=== PATIENT | female | born 1970 | race Caucasian/White ===

== ENCOUNTER → 2019-04-05 06:57 | Outpatient (CLI) | payer OTHER, SELFPAY ==
--- NOTE | 2019-04-05 07:03 | BI_ITS ---
MAMMOGRAPHY - BILATERAL SCREENING REASON FOR EXAM: Female, 48 years old. Routine annual screening examination. PERTINENT HISTORY: Non-contributory. History of bilateral breast reduction surgery. TECHNIQUE: Digital bilateral breast saadia (3D mammographic acquisition) in the CC and MLO projections. 2-D mediolateral oblique (MLO) and craniocaudad (CC) views of both breasts were obtained. CAD: Full Field Digital Mammography with Computer Added Detection was performed. COMPARISON: Comparison is made with prior study dated October 20, 2017 and September 16, 2016. FINDINGS: Breast Composition: There are scattered areas of fibroglandular density. There are no dominant masses or suspicious calcifications. No other significant abnormalities are identified. There has been no significant change since the prior study. BI/SCREENING MAMM (CAD), BILAT IMPRESSION: Stable bilateral screening mammogram. Yearly follow-up mammogram recommended. (A) ASSESSMENT CATEGORY: BIRADS Category 1: Negative. A letter regarding these results will be sent to the patient by the facility within 30 days. Approximately 10% of breast cancers are not detected by mammography. A normal mammogram should not delay biopsy of a clinically suspicious abnormality. [id number] Electronically Signed: Oral Alas, at 9:03 EDT , Service support ,
== END ==
PROVIDERS: Family Provider Family Medicine; PCP Family Medicine; Referring Provider Obstetrics & Gynecology; Visit Provider Obstetrics & Gynecology
DX: Z12.31 Encounter for screening mammogram for malignant neoplasm of breast (principal)
CPT/HCPCS: 77063; 77067

== ENCOUNTER → 2020-09-22 17:30 | Outpatient (CLI) | payer OTHER, SELFPAY ==
--- NOTE | 2020-09-22 16:40 | BI_ITS ---
MAMMOGRAPHY - BILATERAL SCREENING REASON FOR EXAM: Female, 49 years old. Routine annual screening examination. PERTINENT HISTORY: Non-contributory. History of remote bilateral breast reduction surgery. TECHNIQUE: Digital bilateral breast tu (3D mammographic acquisition) in the CC and MLO projections. 2-D mediolateral oblique (MLO) and craniocaudad (CC) views of both breasts were obtained. CAD: Full Field Digital Mammography with Computer Added Detection was performed. COMPARISON: Comparison is made with prior study dated 04/05/2019 and 10/20/2017. FINDINGS: Breast Composition: There are scattered areas of fibroglandular density. There are no dominant masses or suspicious calcifications. Interstitial clip marker is once again seen in the anterior superior retroareolar region of the right breast. No other significant abnormalities are identified. There has been no significant change since the prior study. BI/SCREEN MAMM (CAD) W/TU BILAT IMPRESSION: Stable bilateral screening mammogram. Yearly follow-up mammogram recommended. (A) ASSESSMENT CATEGORY: BIRADS Category 2: Benign. A letter regarding these results will be sent to the patient by the facility within 30 days. Approximately 10% of breast cancers are not detected by mammography. A normal mammogram should not delay biopsy of a clinically suspicious abnormality. [id number] Electronically Signed: Oral Alas, at 8:26 EST , Service support ,
== END ==
PROVIDERS: PCP Family Medicine; Referring Provider Nurse Practitioner Family; Visit Provider Nurse Practitioner Family
DX: Z12.31 Encounter for screening mammogram for malignant neoplasm of breast (principal)
CPT/HCPCS: 77063; 77067

== ENCOUNTER 2022-01-21 11:51 | Outpatient (CLI) | payer OTHER, SELFPAY ==
--- NOTE | 2022-01-21 11:53 | BI_ITS ---
MAMMOGRAPHY - BILATERAL SCREENING REASON FOR EXAM: Female, 51 years old. Routine annual screening examination. PERTINENT HISTORY: Non-contributory. Prior bilateral breast reduction surgery. TECHNIQUE: Digital bilateral breast tu (3D mammographic acquisition) in the CC and MLO projections. 2-D mediolateral oblique (MLO) and craniocaudad (CC) views of both breasts were obtained. CAD: Full Field Digital Mammography with Computer Added Detection was performed. COMPARISON: Comparison is made with prior study dated 09/22/2020 and 04/05/2019. FINDINGS: Breast Composition: There are scattered areas of fibroglandular density. Mildly spiculated nodule measuring 2.5 mm is seen in the deep upper lateral aspect of the left breast. Correlation with ultrasound is recommended. Stable asymmetric breast tissue with more breast tissue is seen in the retroareolar region of the right breast as compared to right side. A tissue clip marker is once again seen in the retroareolar region of the right breast. No other significant abnormalities are identified. BI/SCRN MAMM (CAD)W/TU BILAT IMPRESSION: 21 5 mm nodule is seen in the upper lateral aspect of the left breast. Correlation with ultrasound is recommended. ASSESSMENT CATEGORY: BIRADS Category 0: Incomplete. Need additional imaging evaluation. A letter regarding these results will be sent to the patient by the facility within 30 days. Approximately 10% of breast cancers are not detected by mammography. A normal mammogram should not delay biopsy of a clinically suspicious abnormality. [id number] Electronically Signed: Oral Alas MD at 13:05 EST ,
== END 2022-01-21 23:59 | disposition home or self-care (01) ==
LOC: OPBI 11:52
PROVIDERS: PCP Family Medicine; Visit Provider Student in an Organized Health Care Education/Training Program
DX: Z12.31 Encounter for screening mammogram for malignant neoplasm of breast (principal)
CPT/HCPCS: 77063; 77067

== ENCOUNTER 2022-01-25 13:58 | Outpatient (CLI) | payer OTHER, SELFPAY ==
--- NOTE | 2022-01-25 14:01 | US_ITS ---
STUDY: ULTRASOUND BREAST - LEFT REASON FOR EXAM: Female, 51 years old. Abnormal screening mammogram. TECHNIQUE: Axial and longitudinal images of the LEFT breast were performed with a high resolution ultrasound transducer. # OF IMAGES: 47 COMPARISON: Comparison is made with prior mammogram dated 01/21/2022. FINDINGS: LEFT Breast: There is a 7 mm x 9 mm x 4 mm benign-appearing lymph node at the 3 o''clock position of the breast at 4 cm from the nipple. There is also evidence of a 5 mm x 4 mm x 2 mm well-defined hypoechoic solid nodule at the 4 o''clock position of the breast at 7 cm from nipple. Biopsy is recommended. US/Breast Limited Unilateral IMPRESSION: 5 mm x 4 mm x 2 mm well-defined hypoechoic solid nodule at the 4 o''clock position of the breast at 7 cm from nipple. Biopsy is recommended. ASSESSMENT CATEGORY: BIRADS Category 4: Suspicious - Biopsy Should Be Considered. A letter regarding these results will be sent to the patient by the facility within 30 days. Electronically Signed: Oral Alas MD at 15:27 EST ,
== END 2022-01-25 23:59 | disposition home or self-care (01) ==
LOC: OPUS 13:59
PROVIDERS: PCP Family Medicine; Visit Provider Student in an Organized Health Care Education/Training Program
DX: N63.20 Unspecified lump in the left breast, unspecified quadrant (principal)
CPT/HCPCS: 76642

== ENCOUNTER 2022-02-07 12:30 | Outpatient (CLI) | payer OTHER, SELFPAY ==
--- NOTE | 2022-02-07 12:35 | US_ITS ---
STUDY: ULTRASOUND BREAST - LEFT REASON FOR EXAM: Female, 51 years old. Ultrasound guided left breast biopsy. TECHNIQUE: Axial and longitudinal images of the LEFT breast were performed with a high resolution ultrasound transducer. # OF IMAGES: 14 COMPARISON: Comparison is made with prior ultrasound dated 01/25/2022. FINDINGS: LEFT Breast: Successful sonographic guided core biopsies of the 5 mm x 4 mm x 3 mm well-defined hypoechoic solid nodule at the 4 o''clock position of the breast at 7 cm from the nipple. US/US Breast Biopsy 1st Lesion IMPRESSION: Successful sonographic guided core biopsies of the nodular density at the 4 o''clock position of the breast at 7 cm from nipple. ASSESSMENT CATEGORY: BIRADS Category 2: Benign. A letter regarding these results will be sent to the patient by the facility within 30 days. Electronically Signed: Oral Alas MD at 15:12 EDT ,
--- NOTE | 2022-02-07 13:05 | BRBX_PTH ---
PATIENT: MELCHOR METZ LOC: [facility] U#:[id number] AGE/SX: 51/F ROOM: RE02/07/[address]: Dr. John Giles MD : 1970 BED: DIS: 02/07/2022 SPEC #: [id number] RECD: 02/07/22 13:33 STATUS: SANDY REBarbara #: [id number] FAINA: 02/07/22 13:[address]: John Giles DEPT: SURGICAL PATHOLOGY RECD BY: Jodee Blount ENTERED: 02/08/22 08:17 SP TYPE: BREAST BX OTHR DR: Dr. Dorothy Marquis, DO Tissues: Left breast, NOS Procedures: Surgery Specimen Level IV HEADER OPERATION: Left breast biopsy PRE-OP DIAGNOSIS: Left breast mass TISSUE SUBMITTED: Left breast ISCHEMIC TIME: 1 minute FIXATION TIME: 30.5 hours MICROSCOPIC DIAGNOSIS Left breast mass, core biopsy: Fibroadenoma. Focal duct ectasia. No evidence of malignancy. AM:shikha 02/09/2022 MICROSCOPIC DESCRIPTION Slides are reviewed. GROSS DESCRIPTION Received in fixative is one container labeled with the patient's name and designated left breast. The specimen consists of multiple elongated fragments of du-yellow fibroadipose tissue that in aggregate measure 2 x 1 x 0.1 cm. The entire specimen is submitted in one cassette. / SJ:shikha 02/08/2022 TC:5 CPT: 88140
--- NOTE | 2022-02-07 13:33 | PCM.OPRPT ---
Problems Associated Problem List Diagnoses (1) Abnormal mammogram of left breast: Report of Operation Date of Procedure: 02/07/22 Pre-Operative Diagnosis: Left breast lesion Post-Operative Diagnosis: Same Surgery/Procedure Performed:: Ultrasound-guided core needle biopsy of left breast lesion Description of Procedure: Left breast was examined with ultrasound and the lesion was identified in the lateral aspect of the breast. An area lateral this was prepped and then injected with local anesthetic. A small jose was made with the scalpel. The mammotome needle was placed through this incision and under ultrasound guidance adjacent to the mass and several biopsies were obtained. The needle was then removed. A clip was then placed into the mass under ultrasound guidance. Next a Steri-Strip and bandage were placed over the incision. Patient tolerated the procedure well.
== END 2022-02-07 23:59 | disposition home or self-care (01) ==
PROVIDERS: PCP Family Medicine; Visit Provider Surgery
DX: D24.2 Benign neoplasm of left breast (principal); N60.42 Mammary duct ectasia of left breast; R92.8 Other abnormal and inconclusive findings on diagnostic imaging of breast
CPT/HCPCS: 19083; 88305

== ENCOUNTER → 2022-03-18 | Outpatient (CLI) | payer OTHER, SELFPAY ==
[2022-03-28 13:17] LABS: HPV APTIMA, High Risk Negative (Negative)
== END | disposition home or self-care (01) ==
LOC: WOBLAB 11:30
PROVIDERS: PCP Family Medicine; Visit Provider Student in an Organized Health Care Education/Training Program
DX: Z12.4 Encounter for screening for malignant neoplasm of cervix (principal)
CPT/HCPCS: 87624; 88175; G0145

== ENCOUNTER → 2023-12-22 | Outpatient (CLI) | payer OTHER, SELFPAY ==
--- NOTE | 2023-12-22 07:54 | BI_ITS ---
MAMMOGRAPHY - BILATERAL SCREENING REASON FOR EXAM: Female, 53 years old. Routine annual screening examination. PERTINENT HISTORY: Non-contributory. History of prior bilateral breast reduction surgery. Prior left ultrasound-guided breast biopsy. TECHNIQUE: Digital bilateral breast tu (3D mammographic acquisition) in the CC and MLO projections. 2-D mediolateral oblique (MLO) and craniocaudad (CC) views of both breasts were obtained. CAD: Full Field Digital Mammography with Computer Added Detection was performed. COMPARISON: Comparison is made with prior study of January 21, 2022 and September 22, 2020. FINDINGS: Breast Composition: There are scattered areas of fibroglandular density. There are no dominant masses or suspicious calcifications. Stable asymmetry of breast tissue with more breast tissue is seen in the retroareolar region of the right breast as compared to the left side a tissue clip marker is once again seen in the retroareolar region of the right breast. A new tissue clip marker is also seen in the deep slightly upper lateral aspect of the left breast from recent ultrasound-guided breast biopsy. Stable benign-appearing bilateral axillary lymph nodes. No other significant abnormalities are identified. There has been no significant change since the prior study. BI/SCRN MAMM (CAD)W/TU BILAT IMPRESSION: Stable bilateral screening mammogram. Yearly follow-up mammogram recommended. (A) ASSESSMENT CATEGORY: BIRADS Category 2: Benign. A letter regarding these results will be sent to the patient by the facility within 30 days. Approximately 10% of breast cancers are not detected by mammography. A normal mammogram should not delay biopsy of a clinically suspicious abnormality. [id number] Electronically Signed: Oral Alas MD at 8:37 EST ,
--- OUTSIDE RECORDS SUMMARY | 2023-12-22 07:59 | XMS RPT_ITS | CCD ---
Author Name Unknown Address [address] [place] [address] Organization [facility] Care Team Providers Care Pharmacovigilance Safety Expert Name Role Phone FEDERICO CHAVEZ Unavailable Unavailable FEDERICO CHAVEZ Unavailable Unavailable FEDERICO CHAVEZ Unavailable Unavailable MAGOLINEMICHAEL Admitting Unavailable MAGOLINE, MICHAEL Burkett Attending Unavailable MICHAEL LEIJA Primary Care Unavailable MELISA COLLAZO DO Consulting Unavailable PROVIDER, UNKNOWN Consulting Unavailable FEDERICO VINCENT DO Primary Care Physician DEONNA WILL CALL CLERK - MARY CARMEN PIEDRA Primary Care Phys [facility] DEONNA AVILESN - DOROTHEA, MARY CARMEN Maria Attending U navailable DEONNA WILL CALL CLERK - CIGARETTE ROLLER, MARY CARMEN Maria Primary Care U navailable DEONNA WILL CALL CLERK - CIGARETTE ROLLER, MARY CARMEN Maria Attending U navailable DEONNA WILL CALL CLERK - CIGARETTE ROLLER, MARY CARMEN Maria Primary Care U navailable DEONNA WILL CALL CLERK - CIGARETTE ROLLER, MARY CARMEN Maria Primary Care U navailable DEONNA WILL CALL CLERK - CIGARETTE ROLLER, MARY CARMEN Maria Attending U navailable Medications Current Medications Medication Drug Class(es) Dates Sig (Normalized) Sig (Original) cholecalciferol 1.25 mg oral capsule (1 source) Vitamin D Start: 06-15-2023 End: 12-12-2023 cholecalciferol 1250 mcg (50,000 intl units) oral capsule Dose : 50,000 International_Unit = 1 cap(s), Oral, qmonth, # 4 cap(s), 1 Refill(s), Pharmacy: [facility]/pharmacy #[id number], Vitamin D deficiency, 162, cm, 06/15/23 6:59:00 EDT, Height, kg, 06/15/23 6:59:00 EDT, Dosing Weight Start Date: 06/15/23 Stop Date: 12/12/23 Status: Ordered magnesium oxide 250 mg oral tablet (2 sources) Start: 12-27-2019 take 1 mg by mouth once daily Magnesium 250 mg tablet mg = tab(s), Oral, qDay, 0 Refill(s) Start Date: 12/27/19 Status: Ordered meloxicam 15 mg oral tablet (2 sources) Nonsteroidal Anti-inflammatory Drug Start: 11-26-2021 End: 12-23-2022 meloxicam 15 mg oral tablet Dose : 15 mg = 1 tab(s), Oral, qDay, # 90 tab(s), 1 Refill(s), Pharmacy: [facility]/pharmacy #[id number], Arthritis of knee, 162.3, cm, 05/27/22 8:28:00 EDT, Height, kg, 05/27/22 8:23:00 EDT, Dosing Weight Start Date: 05/27/22 Stop Date: 12/23/22 Status: Ordered Misc Medication (1 source) Start: 06-15-2023 Misc Medication Compounded mounjaro, 0 Refill(s), 105.5 Start Date: 06/15/23 Status: Ordered pantoprazole 40 mg delayed release oral tablet (3 sources) Proton Pump Inhibitor Start: 06-15-2023 pantoprazole 40 mg oral enteric coated tablet Dose : 40 mg = 1 tab(s), Oral, qDay, # 90 tab(s), 1 Refill(s), Pharmacy: [facility]/pharmacy #[id number], GERD (gastroesophageal reflux disease), 162, cm, 06/15/23 6:59:00 EDT, Height, kg, 06/15/23 6:59:00 EDT, Dosing Weight Start Date: 06/15/23 Status: Ordered Problems Active Problems Problem Classification Problem Date Documented Da te Episodic/Chronic Cardiac dysrhythmias (5 sources) Palpitations; Translations: [Palpitations] Onset: 06-02-2017 10-01-2020 Episodic Past or Other Problems Problem Classification Problem Date Documented Da te Episodic/Chronic Fluid and electrolyte disorders (2 sources) Hyperkalemia; Translations: [Hyperkalemia] Onset: 06-15-2023 Episodic Other connective tissue disease (3 sources) Unspecified rotator cuff tear or rupture of right shoulder, not specified as traumatic; Translations: [Unspecified rotator cuff tear or rupture of right shoulder, not specified as traumatic] Onset: 01-27-2020 Episodic Results Test Name Value Interpretation Reference Range Facil ity Encounters Encounter Date Encounter Type Care Provider Facility Start: 12-08-2023 End: 12-09-2023 ambulatory MARY CARMEN YING WILL CALL CLERK - C[employer]ET[employer]ER Facility:B Start: 06-15-2023 End: 06-20-2023 ambulatory MARY CARMEN YING WILL CALL CLERK - C[employer]ARETTE [employer]LLER Facility:[facility] Start: 06-15-2023 End: 06-19-2023 Outreach Lab MARY CARMEN YING WILL CALL CLERK - CIGARETTE [facility]LL[facility] Start: 06-09-2023 End: 06-10-2023 ambulatory MARY CARMEN YING WILL CALL CLERK - CIGARETTE ROLLER Facility:[facility] Start: 09-26-2022 End: 09-26-2022 Patient encounter procedure MICHAEL LEIJA MD [facility] Start: 05-19-2022 End: 05-23-2022 Outreach Lab MARY CARMEN YING WILL CALL CLERK - CIGARETTE ROLLER [facility] Start: 01-27-2020 End: 05-15-2020 Patient encounter procedure MICHAEL LEIJA [facility] Start: 06-02-2017 Ambulatory FEDERICO CHAVEZ Facilit y:[facility] Procedures Date Procedure Procedure Detail Performing Clinician Start: 01-29-2021 Colonoscopy MARY CARMEN AVILA WILL CALL CLERK - C[employer]ARETTE ROLLER Arthroscopy of knee MARY CARMEN DEONNA WILL CALL CLERK - CIGARETTE ROLLER Immunizations Immunization Date Immunization Notes Care Provider Fa cility 02-05-2021 SARS-CoV-2 (COVID-19 ) Ad26 vaccine, recombinant MARY CARMEN YING WILL CALL CLERK - CIGARETTE ROLLER [facility] Payers Date Payer Category Payer Unknown [id number] 1970 Unknown [id number] 1970 Unknown [id number] 1970 Unknown [id number] [id number] 1970 Unknown [id number] [id number] Social History Date Type Detail Facility Start: 07-02-2019 Tobacco smoking status Never s moked tobacco (finding) [facility] Sex Assigned At Female [facility] Evaluation + Plan note Laboratory Note Date & Type Note Facility Evaluation + Plan note Future Appointments Appointment Date:05/27/2022 08:20:00 AM Scheduled Provider:MARY CARMEN YING APRN, CNP Location:[facility] Appointment Type:PC OV Follow Up Future Scheduled TestsComplete Blood Count 07/12/21 [facility] Evaluation + Plan note Laboratory Note Date & Type Note Facility Evaluation + Plan note Future Appointments Appointment Date:11/24/2022 08:30:00 AM Scheduled Provider: Location:[facility] Appointment Type:PC Nurse Lab Appointment Date:12/02/2022 08:20:00 AM Scheduled Provider:MARY CARMEN YING APRN, CNP Location:[facility] Appointment Type:PC OV Follow Up Future Scheduled [id number] Hemoglobin 11/27/22Vitamin D Level 11/27/22 [facility] Evaluation + Plan note Laboratory Note Date & Type Note Facility Evaluation + Plan note Future Appointments Appointment Date:12/15/2023 07:40:00 AM Scheduled Provider:MARY CARMEN YING APRN, CNP Location:[facility] Appointment Type:PC OV Follow Up Future Scheduled [id number] Hemoglobin 12/16/23Lipid Profile 12/16/23Vitamin D Level 12/16/23Complete Metabolic Panel 12/16/23 [facility] Hospital course Narrative Note Date & Type Note Facility Hospital course Narrative No data available for this section [facility] Hospital Discharge instructions Note Date & Type Note Facility Hospital Discharge instructions No data available for this section [facility] Progress note Note Date & Type Note Facility Progress note No data available for this section [facility] Summary Purpose Family History No Family History Records FoundNo Family History Records Found No data available for this section No Family History Records Found Advance Directives No Advanced Directives Records FoundNo Advanced Directives Records FoundNo Advanced Directives Records Found Additional Source Comments INFORMATION SOURCE (unrecogn ized section and content) DATE CREATED AUTHOR AUTHOR'S ORGANIZ ATION 06/10/2020 [facility] DATE CREATED AUTHOR AUTHOR'S ORGANIZ ATION 12/09/2023 [facility] [place] ([place] Care Team (unrecognized sect ion and content) Care Team Personnel Name: FEDERICO VINCENT DO Position: P4 Physician - Primary Care Med Service: Active Provider Member Role: Primary Care Physician Address: Address: [address] [place] [address] Care Team Related Persons Name: MARY CARMEN METZ Care Team Personnel Name: MARY CARMEN YING APRN - CIGARETTE ROLLER Position: P4 Advanced Practice Nurse Member Role: Primary Care Physician Address: Address: [address] [place] [address] Care Team Related Persons Name: MARY CARMEN METZ Patient Care team informatio n (unrecognized section and content) Care Team Personnel Name: MARY CARMEN YING APRN - CIGARETTE ROLLER Position: P4 Advanced It Auditor Member Role: Primary Care Physician Address: Address: [address] [place] [address] Care Team Related Persons Name: MARY CARMEN METZ FOR RECORDS PERTAINING TO PATIENTS WHO ARE OR HAVE BEEN ENROLLED IN A CHEMICAL DEPENDENCY/SUBSTANCEABUSE PROGRAM, SOME INFORMATION MAY BE OMITTED. This clinical summary was aggregated from multiple sources. Caution should be exercised in using it in the provision of clinical care. This summary normalizes information from multiple sources, and as a consequence, information in this document may materially change the coding, format and clinical context of patient data. In addition, data may be omitted in some cases. CLINICAL DECISIONS SHOULD BE BASED ON THE PRIMARY CLINICAL RECORDS. [facility] [employer] provides no warranty or guarantee of the accuracy or completeness of information in this document.
== END | disposition home or self-care (01) ==
LOC: OPBI 07:53
PROVIDERS: PCP Nurse Practitioner Family; Referring Provider Nurse Practitioner Family; Visit Provider Nurse Practitioner Family
DX: Z12.31 Encounter for screening mammogram for malignant neoplasm of breast (principal)
CPT/HCPCS: 77063; 77067

== ENCOUNTER → 2025-08-14 | Outpatient (CLI) | payer OTHER, SELFPAY ==
--- NOTE | 2025-08-14 07:24 | BI_ITS ---
EXAM: SCRN MAMM (CAD)W/TU BILAT DATE: 08/14/2025 CLINICAL HISTORY: F, Age 54 y/o , SCREENING TECHNIQUE: Procedure Code: BISMWCADBTOM Modality: MG Procedure: SCRN MAMM (CAD)W/TU BILAT COMPARISON: Prior exam(s) were compared FINDINGS: TISSUE DENSITY: The breasts are heterogeneously dense, which may obscure small masses. Bilateral Breast Mammographic Findings: No suspicious masses, calcifications or other abnormalities are identified. BI/SCRN MAMM (CAD)W/TU BILAT IMPRESSION: No mammographic evidence of malignancy in either breast. OVERALL FINAL ASSESSMENT BI-RADS 1: NEGATIVE. RECOMMENDATION: Routine annual follow-up in 1 Year Additional Recommendation none A letter with findings and recommendations will be mailed to the patient. Reading Location: [id number]
--- NOTE | 2025-08-14 07:24 | BI_ITS ---
EXAM: SCRN MAMM (CAD)W/TU BILAT DATE: 08/14/2025 CLINICAL HISTORY: F, Age 54 y/o , SCREENING TECHNIQUE: Procedure Code: BISMWCADBTOM Modality: MG Procedure: SCRN MAMM (CAD)W/TU BILAT COMPARISON: Prior exam(s) were compared FINDINGS: TISSUE DENSITY: The breasts are heterogeneously dense, which may obscure small masses. Bilateral Breast Mammographic Findings: No suspicious masses, calcifications or other abnormalities are identified. BI/SCRN MAMM (CAD)W/TU BILAT IMPRESSION: No mammographic evidence of malignancy in either breast. OVERALL FINAL ASSESSMENT BI-RADS 1: NEGATIVE. RECOMMENDATION: Routine annual follow-up in 1 Year Additional Recommendation none A letter with findings and recommendations will be mailed to the patient. Reading Location: [id number]
--- OUTSIDE RECORDS SUMMARY | 2025-08-14 07:43 | XMS RPT_ITS | CCD ---
Author Organization [facility] CliniSyne Care Team Providers Care Corn Detasseler Machine Operator Name Role Phone FEDERICO CHAVEZ Unavailable Unavailable FEDERICO CHAVEZ Unavailable Unavailable FEDERICO CHAVEZ Unavailable Unavailable MICHAEL LEIJA Admitting Unavailable MICHAEL LEIJA Attending Unavailable MICHAEL LEIJA Primary Care Unavailable MELISA COLLAZO DO Consulting Unavailable PROVIDER, UNKNOWN Consulting Unavailable Dr. Federico Vincent Primary Care Provider Dr. John Giles Attending Provider [phone] Dr. Raissa Guzman Referring Provider Dr. John Giles Other Provider FEDERICO VINCENT DO Primary Care Physician ESTEBAN AUTOMOBILE TECHNICIAN - GOLDY PIEDRA [facility] ESTEBAN AUTOMOBILE TECHNICIAN - MBA INTERN, GOLDY Maria Attending U navailable ESTEBAN AUTOMOBILE TECHNICIAN - MBA INTERN, GOLDY Maria Primary Care U navailable BEITLER AUTOMOBILE TECHNICIAN-CNM, JELANI Peter Attending Unav ailable ESTEBAN AUTOMOBILE TECHNICIAN - MBA INTERN, GOLDY Maria Primary Care U navailable ESTEBAN AUTOMOBILE TECHNICIAN - MBA INTERN, GOLDY Maria Attending U navailable ESTEBAN AUTOMOBILE TECHNICIAN - MBA INTERN, GOLDY Maria Primary Care U navailable ESTEBAN AUTOMOBILE TECHNICIAN - MBA INTERN, GOLDY Maria Attending U navailable ESTEBAN AUTOMOBILE TECHNICIAN - MBA INTERN, GOLDY Maria Primary Care U navailable ESTEBAN AUTOMOBILE TECHNICIAN - MBA INTERN, GOLDY Maria Attending U navailable ESTEBAN AUTOMOBILE TECHNICIAN - MBA INTERN, GOLDY Maria Primary Care U navailable ESTEBAN AUTOMOBILE TECHNICIAN - MBA INTERN, GOLDY Maria Attending U navailable ESTEBAN AUTOMOBILE TECHNICIAN - MBA INTERN, GOLDY Maria Primary Care U navailable ESTEBAN AUTOMOBILE TECHNICIAN - MBA INTERN, GOLDY Maria Attending U toyin Dang CNP, GOLDY Maria Primary Care U toyin Dang CNP, GOLDY Maria Primary Care U MD DAYRON Hou Attending [facility] Esteban EMERGENCY ROOM TECHNICIAN, Goldy Quiroga Referring Melita Orellana EMERGENCY ROOM TECHNICIAN, Goldy Quiroga Attending Melita Orellana EMERGENCY ROOM TECHNICIAN, Goldy Quiroga Primary Care Unav ailable Medications Current Medications Medication Drug Class(es) Dates Sig (Normalized) Sig (Original) cholecalciferol 1.25 mg oral capsule (1 source) Vitamin D Start: 06-15-2023 End: 12-12-2023 cholecalciferol 1250 mcg (50,000 intl units) oral capsule Dose : 50,000 International_Unit = 1 cap(s), Oral, qmonth, # 4 cap(s), 1 Refill(s), [id number], Vitamin D deficiency, 162, cm, 06/15/23 6:59:00 EDT, Height, kg, 06/15/23 6:59:00 EDT, Dosing Weight Start Date: 06/15/23 Stop Date: 12/12/23 Status: Ordered ciprofloxacin 250 mg oral tablet (1 source) Quinolone Antimicrobial Start: 05-19-2025 End: 05-24-2025 Cipro 250 mg oral tablet Dose : 250 mg = 1 tab(s), Oral, BID, X 5 day(s), # 10 tab(s), 0 Refill(s), 05/24/25 3:48:00 PM EDT, Pharmacy: [facility]/pharmacy #[id number], UTI symptoms, 160, cm, 05/19/25 14:58:00 EDT, Height, 69.2, kg, 05/19/25 14:58:00 EDT, Dosing Weight Start Date: 05/19/25 Stop Date: 05/24/25 Status: Ordered Quantity: 10.0 Unit: tab(s) Repeat number: 1 Indications: Unspecified symptoms and signs involving the genitourinary system; estradiol 0.1 mg/ml vaginal cream (1 source) Estrogen Start: 07-16-2024 estradiol 0.1 mg/g vaginal cream See Instructions, 2 gram(s) Vaginal twice weekly, # 128 gram(s), 3 Refill(s), [facility], 162, cm, 07/16/24 13:24:00 EDT, Height, kg, 07/16/24 13:24:00 EDT, Dosing Weight Start Date: 07/16/24 Status: Ordered Estradiol Patch 0.025 mg/24 hours weekly transdermal film, extended release (2 sources) Start: 05-15-2024 Estradiol Patch 0.025 mg/24 hours weekly transdermal film, extended release 1 patch(es), Topical, qWeek, # 4 patch(es), 0 Refill(s), Pharmacy: [facility]/pharmacy #[id number], 161.7, cm, 05/15/24 9:32:00 EDT, Height, kg, 05/15/24 9:32:00 EDT, Dosing Weight Start Date: 05/15/24 Status: Ordered estrogens, conjugated (fpc) 0.625 mg/ml vaginal cream (3 sources) Estrogen Start: 05-15-2024 Premarin 0.625 mg/g vaginal cream with applicator 0.5 gram(s), Vaginal, qPM, intravaginal every night x 2 weeks, then reduce to 2x per week x 2weeks, # 15 gram(s), 0 Refill(s), Pharmacy: [facility]/pharmacy #[id number], 161.7, cm, 05/15/24 9:32:00 EDT, Height, kg, 05/15/24 9:32:00 EDT, Dosing Weight Start Date: 05/15/24 Status: Ordered magnesium oxide 250 mg oral tablet (2 sources) Start: 12-27-2019 take 1 mg by mouth once daily Magnesium 250 mg tablet mg = tab(s), Oral, qDay, 0 Refill(s) Start Date: 12/27/19 Status: Ordered meloxicam 15 mg oral tablet (4 sources) Nonsteroidal Anti-inflammatory Drug Start: 02-01-2022 Meloxicam Active EACH PO February 01, 2022 2:27pm Start: 11-26-2021 End: 12-23-2022 meloxicam 15 mg oral tablet Dose : 15 mg = 1 tab(s), Oral, qDay, # 90 tab(s), 1 Refill(s), Pharmacy: [facility]/pharmacy #[id number], Arthritis of knee, 162.3, cm, 05/27/22 8:28:00 EDT, Height, kg, 05/27/22 8:23:00 EDT, Dosing Weight Start Date: 05/27/22 Stop Date: 12/23/22 Status: Ordered [facility] Medication (1 source) Start: 06-15-2023 [facility] Medicatio n Compounded arthur, 0 Refill(s), 105.5 Start Date: 06/15/23 Status: Ordered pantoprazole 40 mg delayed release oral tablet (10 sources) Proton Pump Inhibitor Start: 07-11-2025 pantoprazole 40 mg oral enteric coated tablet Dose : 40 mg = 1 tab(s), Oral, qDay, # 90 tab(s), 1 Refill(s), [facility]acy: [facility], GERD (gastroesophageal reflux disease), 160, cm, 07/11/25 14:00:00 EDT, Height, kg, 07/11/25 14:00:00 EDT, Dosing Weight Start Date: 07/11/25 Status: Ordered Medication Dispense Status: Completed Quantity: 90.0 Unit: tab(s) Total Allowed Fills: 2 Fills Dispensed: 0 Indications: Gastro-esophageal reflux disease without esophagitis; Start: 01-10-2025 pantoprazole 4 0 mg oral enteric coated tablet Dose : 40 mg = 1 tab(s), Oral, qDay, # 90 tab(s), 1 Refill(s), Pharmacy: [facility], GERD (gastroesophageal reflux disease), 162, cm, 01/10/25 7:42:00 EST, Height, kg, 01/10/25 7:42:00 EST, Dosing Weight Start Date: 01/10/25 Status: Ordered Quantity: 90.0 Unit: tab(s) Repeat number: 2 Indications: Gastro-esophageal reflux disease without esophagitis; Start: 07-12-2024 pantoprazole 4 0 mg oral enteric coated tablet Dose : 40 mg = 1 tab(s), Oral, qDay, # 90 tab(s), 1 Refill(s), Pharmacy: [facility]/pharmacy #[id number], GERD (gastroesophageal reflux disease), 162, cm, 07/12/24 7:38:00 EDT, Height, kg, 07/12/24 7:38:00 EDT, Dosing Weight Start Date: 07/12/24 Status: Ordered Start: 12-15-2023 pantoprazole 4 0 mg oral enteric coated tablet Dose : 40 mg = 1 tab(s), Oral, qDay, # 90 tab(s), 1 Refill(s), Pharmacy: [facility]/pharmacy #[id number], GERD (gastroesophageal reflux disease), 162, cm, 12/15/23 7:56:00 EST, Height, kg, 12/15/23 7:56:00 EST, Dosing Weight Start Date: 12/15/23 Status: Ordered Start: 06-15-2023 pantoprazole 4 0 mg oral enteric coated tablet Dose : 40 mg = 1 tab(s), Oral, qDay, # 90 tab(s), 1 Refill(s), Pharmacy: [facility]/pharmacy #[id number], GERD (gastroesophageal reflux disease), 162, cm, 06/15/23 6:59:00 EDT, Height, kg, 06/15/23 6:59:00 EDT, Dosing Weight Start Date: 06/15/23 Status: Ordered Start: 02-01-2022 Pantoprazole A ctive TAB PO February 01, 2022 2:27pm Start: 11-26-2021 End: 12-23-2022 pantoprazole 40 mg oral ente samuel coated tablet Dose : 40 mg = 1 tab(s), Oral, qDay, # 90 tab(s), 1 Refill(s), Pharmacy: [facility]/pharmacy #[id number], GERD (gastroesophageal reflux disease), 162.3, cm, 05/27/22 8:28:00 EDT, Height, kg, 05/27/22 8:23:00 EDT, Dosing Weight Start Date: 05/27/22 Stop Date: 12/23/22 Status: Ordered PEG-3350 with Electrolytes (Eqv-GoLYTELY) oral powder for reconstitution (2 sources) Start: 07-12-2024 PEG-3350 with Electrolytes (Eqv-GoLYTELY) oral powder for reconstitution Dose = 240 mL, Oral, q10min, # 1 EA, 0 Refill(s), Pharmacy: [facility]/pharmacy #[id number], 162, cm, 07/12/24 7:38:00 EDT, Height, kg, 07/12/24 7:38:00 EDT, Dosing Weight Start Date: 07/12/24 Status: Ordered Quantity: 1.0 Unit: EA Repeat number: 1 Start: 07-12-2024 PEG-3350 with Electrolytes (Eqv-GoLYTELY) oral powder for reconstitution Dose = 240 mL, Oral, q10min, # 1 EA, 0 Refill(s), [id number], 162, cm, 07/12/24 7:38:00 EDT, Height, kg, 07/12/24 7:38:00 EDT, Dosing Weight Start Date: 07/12/24 Status: Ordered phenazopyridine hydrochloride 100 mg oral tablet (1 source) Start: 05-19-2025 End: 05-26-2025 Pyridium 100 mg oral tablet Dose : 100 mg = 1 tab(s), Oral, TID, X 7 day(s), # 21 tab(s), 0 Refill(s), 05/26/25 3:49:00 PM EDT, [id number], UTI symptoms, 160, cm, 05/19/25 14:58:00 EDT, Height, kg, 05/19/25 14:58:00 EDT, Dosing Weight Start Date: 05/19/25 Stop Date: 05/26/25 Status: Ordered Quantity: 21.0 Unit: tab(s) Repeat number: 1 Indications: Unspecified symptoms and signs involving the genitourinary system; polyethylene glycol 3350 20470 mg powder for oral solution (3 sources) Osmotic Laxative Start: 01-10-2025 End: 01-07-2026 take 17 doses by mouth once daily Miralax Powder Packet Dose : 17 gram(s) =, Oral, qDay, dissolve in water or juice before taking, X 90 day(s), # 255 gram(s), 1 Refill(s), 01/07/26 2:34:00 PM EST, Pharmacy: [facility], Chronic constipation, 160, cm, 07/11/25 14:00:00 EDT, Height, kg, 07/11/25 14:00:00 EDT, Dosing Weight Start Date: 07/11/25 Stop Date: 01/07/26 Status: Ordered Medication Dispense Status: Completed Quantity: 255.0 Unit: g Total Allowed Fills: 2 Fills Dispensed: 0 Indications: Other constipation; progesterone 200 mg oral capsule (2 sources) Progesterone Start: 05-15-2024 take 1 capsule by mouth once daily Progesterone (micronized) 200 mg oral capsule Dose : 200 mg =, Oral, qDay, # 60 cap(s), 0 Refill(s), Pharmacy: [facility]/pharmacy #[id number], 161.7, cm, 05/15/24 9:32:00 EDT, Height, kg, 05/15/24 9:32:00 EDT, Dosing Weight Start Date: 05/15/24 Status: Ordered tirzepatide 15 mg/0.5 mL subcutaneous solution (2 sources) Start: 12-30-2024 tirzepatide 15 mg/0.5 mL subcutaneous solution mg =, Subcutaneous, 0 Refill(s) Start Date: 12/30/24 Status: Ordered Medication Dispense Status: Completed Total Allowed Fills: 1 Fills Dispensed: 0 Start: 12-30-2024 tirzepatide 15 mg/0.5 mL subcutaneous solution mg =, Subcutaneous, 0 Refill(s) Start Date: 12/30/24 Status: Ordered Repeat number: 1 Vitamin B Complex oral table t (1 source) Start: 11-26-2021 Vitamin B Comp britney oral tablet Oral, qDay, 0 Refill(s) Start Date: 11/26/21 Status: Ordered Completed/Discontinued Medications Medication Drug Class(es) Dates Sig (Normalized) Sig (Original) 0.75 ML semaglutide 3.2 MG/ML Auto-Injector [Wegovy] (3 sources) Start: 12-15-2023 End: 08-23-2024 inject 0.75 mL by subcutaneous injection every week Wegovy (2.4 mg dose) subcutaneous solution Dose : 2.4 mg = 0.75 mL, Subcutaneous, qWeek, in the abdomen, thigh, or upper arm, # 13.5 mL, 1 Refill(s), Pharmacy: [facility]acy #[id number], 162, cm, 12/15/23 7:56:00 EST, Height, kg, 12/15/23 7:56:00 EST, Dosing Weight Start Date: 12/15/23 Stop Date: 08/23/24 Status: Ordered linaclotide 0.145 mg oral capsule (1 source) Guanylate Cyclase-C Agonist Start: 07-12-2024 End: 09-10-2024 Linzess 145 mcg oral capsule Dose : 145 mcg = 1 cap(s), Oral, qDayAC, 30 minutes before breakfast. Do NOT crush/chew, # 30 cap(s), 1 Refill(s), Pharmacy: [facility]/pharmacy #[id number], Chronic constipation, 162, cm, 07/12/24 7:38:00 EDT, Height, kg, 07/12/24 7:38:00 EDT, Dosing Weight Start Date: 07/12/24 Stop Date: 09/10/24 Status: Ordered Problems Active Problems Problem Classification Problem Date Documented Date Episodic/Chronic Abdominal pain (2 sources) Unspecified abdominal pain; Translations: [Unspecified abdominal pain] Onset: 05-19-20 Episodic Cardiac dysrhythmias (12 sources) Palpitations; Translations: [Palpitations] Onset: 06-02-20 17 10-01-2020 Episodic Comment on above: (2019) EKG Results: SINUS RHYTHM Diabetes mellitus without complication (9 sources) Impaired fasting glycemia 05-27-2022 Episod ic Disorders of lipid metabolism (8 sources) Hypercholesterolemia 06-15-2023 Chronic Esophageal disorders (10 sources) Gastroesophageal reflux disease 10-23-2020 Chronic Comment on above: (2019) XR UPPER GI Procedure: The patient swallowed barium without difficulty. The esophagus is structurally normal. The esophageal mucosa appears normal. No esophageal dysmotility is realized. The stomach demonstrates normal distensibility. No mass or ulceration is identified. The duodenal bulb and sweep are unremarkable. Mild gastroesophageal reflux was demonstrated during this examination. No hiatal hernia is identified. Fluoroscopy time: 47 seconds Number of images: 12 Number of films: 4 Dose: 1232.3 cgycm2 IMPRESSION: Mild gastroesophageal reflux. (2019) XR UPPER GI Procedure: The patient swallowed barium without difficulty. The esophagus is structurally normal. The esophageal mucosa appears normal. No esophageal dysmotility is realized. The stomach demonstrates normal distensibility. No mass or ulceration is identified. The duodenal bulb and sweep are unremarkable. Mild gastroesophageal reflux was demonstrated during this examination. No hiatal hernia is identified. Fluoroscopy time: 47 seconds Number of images: 12 Number of films: 4 Dose: 1232.3 cgycm2 IMPRESSION: Mild gastroesophageal reflux. Heart valve disorders (18 sources) Mitral valve regurgitation; Translations: [Tricuspid valve regurgitation] 10-12-2020 Chronic Comment on above: (2019) Echo Summary: 1. Mild biatrial enlargement. Normal biventricular function. 2. Left ventricle: The cavity size is normal. Wall thickness is normal. Systolic function is normal. The estimated ejection fraction is 60-65%. Wall motion is normal; there are no regional wall motion abnormalities. Normal diastolic function. 3. Mitral valve: There is trivial regurgitation. 4. Left atrium: The atrium is mildly dilated. 5. Right ventricle: The RV systolic pressure by Doppler is 22 mm Hg. 6. Right atrium: The atrium is mildly dilated. The estimated right atrial pressure is 3 mm Hg. Impressions: Mild biatrial enlargement. Heart valve disorders (10 sources) Heart murmur 10-01-2020 Episodic Comment on above: (2019) Echo Summary: 1. Mild biatrial enlargement. Normal biventricular function. 2. Left ventricle: The cavity size is normal. Wall thickness is normal. Systolic function is normal. The estimated ejection fraction is 60-65%. Wall motion is normal; there are no regional wall motion abnormalities. Normal diastolic function. 3. Mitral valve: There is trivial regurgitation. 4. Left atrium: The atrium is mildly dilated. 5. Right ventricle: The RV systolic pressure by Doppler is 22 mm Hg. 6. Right atrium: The atrium is mildly dilated. The estimated right atrial pressure is 3 mm Hg. Echo Impressions: Mild biatrial enlargement. Normal biventricular function. . 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 Mild biatrial enlargement. Normal biventricular function. 2. Left ventricle: The cavity size is normal. Wall thickness is normal. Systolic function is normal. The estimated ejection fraction is 60-65%. Wall motion is normal; there are no regional wall motion abnormalities. Normal diastolic function. 3. Mitral valve: There is trivial regurgitation. 4. Left atrium: The atrium is mildly dilated. 5. Right ventricle: The RV systolic pressure by Doppler is 22 mm Hg. 6. Right atrium: The atrium is mildly dilated. The estimated right atrial pressure is 3 mm Hg. Impressions: Mild biatrial enlargement. Other gastrointestinal disorders (2 sources) Constipation; Translations: [Constipation, unspecified] 02-01-2022 Episodic Other gastrointestinal disorders (10 sources) Chronic constipation 09-21-2020 Episodic Other non-traumatic joint disorders (10 sources) Arthritis of knee 05-21-2021 Chronic Other nutritional; endocrine; and metabolic disorders (6 sources) Body mass index 40+ - severely obese 06-15-2023 Chronic Other nutritional; endocrine; and metabolic disorders (6 sources) Morbid obesity 06-15-2023 Chronic Other nutritional; endocrine; and metabolic disorders (2 sources) Overweight in adulthood with body mass index of 25 or more but less than 30 01-10-2025 Episodic Other screening for suspected conditions (not mental disorders or infectious disease) (9 sources) Mammography abnormal; Translations: [Other abnormal and inconclusive findings on diagnostic imaging of breast] Onset: 05-15-20 Episodic Residual codes; unclassified (8 sources) Did not attend 06-01-2023 Episodic Comment on above: 06/01/2023 Sprains and strains (3 sources) Strain of neck muscle 11-26-2021 Episodic Unclassified (20 sources) Patient encounter status 09-21-2020 Unclassified (8 sources) Non-smoker 06-15-2023 Past or Other Problems Problem Classification Problem Date Documented Da te Episodic/Chronic Other connective tissue disease (3 sources) Unspecified rotator cuff tear or rupture of right shoulder, not specified as traumatic; Translations: [Unspecified rotator cuff tear or rupture of right shoulder, not specified as traumatic] Onset: 01-27-2020 Episodic Results Test Name Value Interpretation Reference Range Facility .GFRon 07-11-2025 Estimated Glomerular Filtration Rate 88 ml/min/1.73sqm Normal [facility] Comment on above: Result Comment: Stages of Chronic Kidney Disease (CKD) Stage Description eGFR(ml/min/1.73 sq.m.) CKD 1 Normal kidney function or >=90 normal kindney function with possible kidney damage (ex. Proteinuria) CKD 2 Kidney damage with mild loss 60-89 of kidney function CKD 3a Mild to moderate loss of kidney 45-59 function CKD 3b Moderate to severe loss of 30-44 of kindey function CKD 4 Severe loss of kidney function 15-29 CKD 5 Kidney failure <15 Note: (go live 2024) the eGFR calculation was updated to the 2020 CKD-EPI creatinine equation without a race factor to calculate the eGFR results. Performed By: #### A 1C, CMP, VIDH, GFR, LIPID #### [address] [address] A1Con 07-11-2025 Glucose [Mass/Vol] 105 mg/dL Normal [facility] Comment on above: Result Comment: Vika mated Average Glucose calculated by equation ((28.7xA1C)-46.7) Estimated average glucose (eAG) is a calculated value from Hemoglobin A1C and is hostess party sales representative of the average blood glucose level in the last 2-3 month period. Normal range: less than 114 mg/dL Performed By: #### A 1C, CMP, VIDH, GFR, LIPID ####[address] [address] HbA1c (Bld) [Mass fraction] 5.3 % Normal 4.3-6.4 [facility] Comment on above: Performed By: #### A 1C, CMP, VIDH, GFR, LIPID ####[address] [address] CMPon 07-11-2025 Albumin Level 3.8 G/dL Normal 3.5-5.0 [facility] Comment on above: Performed By: #### A 1C, CMP, VIDH, GFR, LIPID #### [address] [address] Albumin/Globulin [Mass ratio] 1.1 {ratio} Normal 1.1-2.5 [facility] Comment on above: Performed By: #### A 1C, CMP, VIDH, GFR, LIPID #### [address] [address] ALP [Catalytic activity/Vol] 85 U/L Normal 40-135 [facility] Comment on above: Performed By: #### A 1C, CMP, VIDH, GFR, LIPID #### [address] [address] ALT [Catalytic activity/Vol] 21 U/L Normal 14-59 [facility] Comment on above: Performed By: #### A 1C, CMP, VIDH, GFR, LIPID #### [address] [address] AST [Catalytic activity/Vol] 19 U/L Normal 10-40 [facility] Comment on above: Performed By: #### A 1C, CMP, VIDH, GFR, LIPID #### [address] [address] Bili Total 0.5 mg/dL Normal 0.2-1.0 [facility] Comment on above: Result Comment: Use of this assay is not recommended for patients undergoing treatment with eltrombopag due to the potential for falsely elevated results. Performed By: #### A 1C, CMP, VIDH, GFR, LIPID #### [address] [address] BUN/Creatinine Ratio 16 ratio Normal 7-27 [facility] Comment on above: Performed By: #### A 1C, CMP, VIDH, GFR, LIPID #### [address] [address] Calcium [Mass/Vol] 9.3 mg/dL Normal 8.4-10.2 [facility] Comment on above: Performed By: #### A 1C, CMP, VIDH, GFR, LIPID #### [address] [address] Chloride [Moles/Vol] 103 mmol/L Normal 98-107 [facility] Comment on above: Performed By: #### A 1C, CMP, VIDH, GFR, LIPID #### [address] [address] CO2 [Moles/Vol] 27 mmol/L Normal 22-29 [facility] Comment on above: Performed By: #### A 1C, CMP, VIDH, GFR, LIPID #### [address] [address] Creatinine [Mass/Vol] 0.79 mg/dL Normal 0.51-0.95 [facility] Comment on above: Performed By: #### A 1C, CMP, VIDH, GFR, LIPID #### [address] [address] Electrolyte Balance 8.0 mEq/L Normal 4.0-15.0 [facility] Comment on above: Performed By: #### A 1C, CMP, VIDH, GFR, LIPID #### [address] [address] Globulin 3.5 G/dL Normal 2.7-4.4 [facility] Comment on above: Performed By: #### A 1C, CMP, VIDH, GFR, LIPID #### [address] [address] Glucose [Mass/Vol] 77 mg/dL Normal 70-105 [facility] Comment on above: Performed By: #### A 1C, CMP, VIDH, GFR, LIPID #### [address] [address] Potassium [Moles/Vol] 4.0 mmol/L Normal 3.5-5.1 [facility] Comment on above: Performed By: #### A 1C, CMP, VIDH, GFR, LIPID #### [address] [address] Sodium [Moles/Vol] 138 mmol/L Normal 136-145 [facility] Comment on above: Performed By: #### A 1C, CMP, VIDH, GFR, LIPID #### [address] [address] Total Protein 7.3 G/dL Normal 6.4-8.2 [facility] Comment on above: Performed By: #### A 1C, CMP, VIDH, GFR, LIPID #### [address] [address] Urea nitrogen [Mass/Vol] 13 mg/dL Normal 7-18 [facility] Comment on above: Performed By: #### A 1C, CMP, VIDH, GFR, LIPID #### [address] [address] LABORATORYOrdered By: SYSTEM SYSTEM on 07-11-2025 25-hydroxyvitamin D3 [Mass/Vol] 67.8 ng/mL Invalid Interpretation Code AO ADM SS Comment on above: Interpretive Data: I nterpretive Values Based on Total 25(OH) Vitamin D: Deficient <20 ng/mL Insufficient 20 - <30 ng/mL Sufficient 30-100 ng/mL Albumin BCP dye [Mass/Vol] 3.8 G/dL Normal 3.5 - 5.0 G/dL AO ADM SS Albumin/Globulin [Mass ratio] 1.1 {ratio} Normal 1.1 - 2.5 ratio AO ADM SS ALP [Catalytic activity/Vol] 85 U/L Normal 40 - 135 U/L AO ADM SS ALT With P-5'-P [Catalytic activity/Vol] 21 U/L Normal 14 - 59 U/L AO ADM SS AST With P-5'-P [Catalytic activity/Vol] 19 U/L Normal 10 - 40 U/L AO ADM SS Bilirubin [Mass/Vol] 0.5 mg/dL Normal 0.2 - 1 .0 mg/dL AO ADM SS Comment on above: Interpretive Data: U se of this assay is not recommended for patients undergoing treatment with eltrombopag due to the potential for falsely elevated results. Calcium [Mass/Vol] 9.3 mg/dL Normal 8.4 - 10. 2 mg/dL AO ADM SS Chloride [Moles/Vol] 103 mmol/L Normal 98 - 10 7 mmol/L AO ADM SS CO2 [Moles/Vol] 27 mmol/L Normal 22 - 29 mmol/L AO ADM SS Creatinine [Mass/Vol] 0.79 mg/dL Normal 0.51 - 0.95 mg/dL AO ADM SS Electrolyte Balance 8.0 mEq/L Normal 4.0 - 15 .0 mEq/L AO ADM SS Estimated Glomerular Filtration Rate 88 ml/min/1.73sqm Invalid Interpretation Code AO Chemistry S Comment on above: Interpretive Data: Stages of Chronic Kidney Disease (CKD) Stage Description eGFR(ml/min/1.73 sq.m.) CKD 1 Normal kidney function or >=90 normal kindney function with possible kidney damage (ex. Proteinuria) CKD 2 Kidney damage with mild loss 60-89 of kidney function CKD 3a Mild to moderate loss of kidney 45-59 function CKD 3b Moderate to severe loss of 30-44 of kindey function CKD 4 Severe loss of kidney function 15-29 CKD 5 Kidney failure <15 Note: (go live 2024) the eGFR calculation was updated to the 2020 CKD-EPI creatinine equation without a race factor to calculate the eGFR results. Globulin 3.5 G/dL Normal 2.7 - 4.4 G/dL AO ADM SS Glucose [Mass/Vol] 77 mg/dL Normal 70 - 105 mg/dL AO ADM SS Glucose [Mass/Vol] 105 mg/dL Invalid Interpretation Code AO Chemistry S Comment on above: Interpretive Data: E stimated average glucose (eAG) is a calculated value from Hemoglobin A1C and is hostess party sales representative of the average blood glucose level in the last 2-3 month period. Normal range: less than 114 mg/dL HbA1c (Bld) [Mass fraction] 5.3 % Normal 4.3 - 6.4 % AO ADM SS Potassium [Moles/Vol] 4.0 mmol/L Normal 3.5 - 5.1 mmol/L AO ADM SS Protein [Mass/Vol] 7.3 G/dL Normal 6.4 - 8.2 G/dL AO ADM SS Sodium [Moles/Vol] 138 mmol/L Normal 136 - 145 mmol/L AO ADM SS Urea nitrogen [Mass/Vol] 13 mg/dL Normal 7 - 18 mg/dL AO ADM SS Urea nitrogen/Creatinine [Mass ratio] 16 ratio Normal 7 - 27 ratio AO ADM SS LABORATORYOrdered By: Gordo Monsalve on 07-11-2025 Cholesterol [Mass/Vol] 204 mg/dL High 0 - 200 mg/dL AO ADM SS Comment on above: Interpretive Data: C holesterol Reference Interval: Less than 200 Desirable 200-239 Borderline high risk 240 and above High risk Cholesterol in HDL [Mass/Vol] 69 mg/dL High 40 - 60 mg/dL AO ADM SS Cholesterol in LDL [Mass/Vol] 119 mg/dL Normal 0 - 130 mg/dL AO ADM SS Triglyceride [Mass/Vol] 82 mg/dL Normal 0 - 150 mg/dL AO ADM SS Comment on above: Interpretive Data: T riglyceride Reference Interval: Less than 150 Normal 150-199 Borderline high risk 200-499 High risk 500 or higher Very high risk LIPIDon 07-11-2025 Cholesterol [Mass/Vol] 204 mg/dL High 0-200 [facility] Comment on above: Result Comment: Chol esterol Reference Interval: Less than 200 Desirable 200-239 Borderline high risk 240 and above High risk Performed By: #### A 1C, CMP, VIDH, GFR, LIPID ####[facility] [place], [place] [address] Cholesterol in HDL [Mass/Vol] 69 mg/dL High 40-60 [facility] Comment on above: Performed By: #### A 1C, CMP, VIDH, GFR, LIPID ####[facility] [place], [place] [address] Cholesterol in LDL [Mass/Vol] 119 mg/dL Normal 0-130 [facility] Comment on above: Performed By: #### A 1C, CMP, VIDH, GFR, LIPID ####[facility] [place], [place] [address] Triglyceride [Mass/Vol] 82 mg/dL Normal 0-150 [facility] Comment on above: Result Comment: Trig lyceride Reference Interval: Less than 150 Normal 150-199 Borderline high risk 200-499 High risk 500 or higher Very high risk Performed By: #### A 1C, CMP, VIDH, GFR, LIPID ####[place] [id number] [place], [place] [address] VIDHon 07-11-2025 Vit. D 25-Hydroxy 67.8 ng/mL Normal [facility] Comment on above: Result Comment: Inte rpretive Values Based on Total 25(OH) Vitamin D: Deficient <20 ng/mL Insufficient 20 - <30 ng/mL Sufficient 30-100 ng/mL Performed By: #### A 1C, CMP, VIDH, GFR, LIPID #### [place] [id number] [place], [place] [address] AMIKACIN:SUSC:PT:ISOLATE:ORD QN:MICon 05-19-2025 Amikacin DELIA [Susc] >100,000 cfu/ml Escherichia coli [facility] Amikacin DELIA [Susc]on 2024 Escherichia coli Escherichia coli [facility] .GFRon 01-03-2025 Estimated Glomerular Filtration Rate 101 ml/min/1.73sqm Normal [facility] Comment on above: Result Comment: Stages of Chronic Kidney Disease (CKD) Stage Description eGFR(ml/min/1.73 sq.m.) CKD 1 Normal kidney function or >=90 normal kindney function with possible kidney damage (ex. Proteinuria) CKD 2 Kidney damage with mild loss 60-89 of kidney function CKD 3a Mild to moderate loss of kidney 45-59 function CKD 3b Moderate to severe loss of 30-44 of kindey function CKD 4 Severe loss of kidney function 15-29 CKD 5 Kidney failure <15 Note: (go live 2024) the eGFR calculation was updated to the 2020 CKD-EPI creatinine equation without a race factor to calculate the eGFR results. Performed By: #### A 1C, LIPID, CMP, GFR, VIDH #### [address] [address] A1Con 01-03-2025 Glucose [Mass/Vol] 105 mg/dL Normal [facility] Comment on above: Result Comment: Vika mated Average Glucose calculated by equation ((28.7xA1C)-46.7) Estimated average glucose (eAG) is a calculated value from Hemoglobin A1C and is hostess party sales representative of the average blood glucose level in the last 2-3 month period. Normal range: less than 114 mg/dL Performed By: #### A 1C, LIPID, CMP, GFR, VIDH #### [address] [address] HbA1c (Bld) [Mass fraction] 5.3 % Normal 4.3-6.4 [facility] Comment on above: Performed By: #### A 1C, LIPID, CMP, GFR, VIDH #### [address] [address] CMPon 01-03-2025 Albumin Level 4.0 G/dL Normal 3.5-5.0 [facility] Comment on above: Performed By: #### A 1C, LIPID, CMP, GFR, VIDH #### [address] [address] Albumin/Globulin [Mass ratio] 1.1 {ratio} Normal 1.1-2.5 [facility] Comment on above: Performed By: #### A 1C, LIPID, CMP, GFR, VIDH #### [address] [address] ALP [Catalytic activity/Vol] 85 U/L Normal 40-135 [facility] Comment on above: Performed By: #### A 1C, LIPID, CMP, GFR, VIDH #### [address] [address] ALT [Catalytic activity/Vol] 21 U/L Normal 14-59 [facility] Comment on above: Performed By: #### A 1C, LIPID, CMP, GFR, VIDH #### [address] [address] AST [Catalytic activity/Vol] 12 U/L Normal 10-40 [facility] Comment on above: Performed By: #### A 1C, LIPID, CMP, GFR, VIDH #### [address] [address] Bili Total 0.5 mg/dL Normal 0.2-1.0 [facility] Comment on above: Result Comment: Use of this assay is not recommended for patients undergoing treatment with eltrombopag due to the potential for falsely elevated results. Performed By: #### A 1C, LIPID, CMP, GFR, VIDH #### [address] [address] BUN/Creatinine Ratio 17 ratio Normal 7-27 [facility] Comment on above: Performed By: #### A 1C, LIPID, CMP, GFR, VIDH #### [address] [address] Calcium [Mass/Vol] 9.5 mg/dL Normal 8.4-10.2 [facility] Comment on above: Performed By: #### A 1C, LIPID, CMP, GFR, VIDH #### [address] [address] Chloride [Moles/Vol] 105 mmol/L Normal 98-107 [facility] Comment on above: Performed By: #### A 1C, LIPID, CMP, GFR, VIDH #### [address] [address] CO2 [Moles/Vol] 27 mmol/L Normal 22-29 [facility] Comment on above: Performed By: #### A 1C, LIPID, CMP, GFR, VIDH #### [address] [address] Creatinine [Mass/Vol] 0.70 mg/dL Normal 0.55-1.02 [facility] Comment on above: Result Comment: Test ing performed on [employer] Dimension EXL analyzer using a modified kinetic Leti technique. Performed By: #### A 1C, LIPID, CMP, GFR, VIDH #### [place] [address] Electrolyte Balance 9.0 mEq/L Normal 4.0-15.0 [facility] Comment on above: Performed By: #### A 1C, LIPID, CMP, GFR, VIDH #### [place] [address] Globulin 3.8 G/dL Normal 1.5-3.8 [facility] Comment on above: Performed By: #### A 1C, LIPID, CMP, GFR, VIDH #### [place] [address] Glucose [Mass/Vol] 81 mg/dL Normal 70-105 [facility] Comment on above: Performed By: #### A 1C, LIPID, CMP, GFR, VIDH #### [address] [address] Potassium [Moles/Vol] 4.4 mmol/L Normal 3.5-5.1 [facility] Comment on above: Performed By: #### A 1C, LIPID, CMP, GFR, VIDH #### [place] [address] Sodium [Moles/Vol] 141 mmol/L Normal 136-145 [facility] Comment on above: Performed By: #### A 1C, LIPID, CMP, GFR, VIDH #### [place] [id number] Total Protein 7.8 G/dL Normal 6.4-8.2 [facility] Comment on above: Performed By: #### A 1C, LIPID, CMP, GFR, VIDH #### [place] [place], [place] [address] Urea nitrogen [Mass/Vol] 12 mg/dL Normal 7-18 [facility] Comment on above: Performed By: #### A 1C, LIPID, CMP, GFR, VIDH #### [place] [id number] [place], [place] [address] LABORATORYOrdered By: SYSTEM SYSTEM on 01-03-2025 25-hydroxyvitamin D3 [Mass/Vol] 69.9 ng/mL Invalid Interpretation Code AO ADM SS Comment on above: Interpretive Data: I nterpretive Values Based on Total 25(OH) Vitamin D: Deficient <20 ng/mL Insufficient 20 - <30 ng/mL Sufficient 30-100 ng/mL Albumin BCP dye [Mass/Vol] 4.0 G/dL Normal 3.5 - 5.0 G/dL AO ADM SS Albumin/Globulin [Mass ratio] 1.1 {ratio} Normal 1.1 - 2.5 ratio AO ADM SS ALP [Catalytic activity/Vol] 85 U/L Normal 40 - 135 U/L AO ADM SS ALT With P-5'-P [Catalytic activity/Vol] 21 U/L Normal 14 - 59 U/L AO ADM SS AST With P-5'-P [Catalytic activity/Vol] 12 U/L Normal 10 - 40 U/L AO ADM SS Bilirubin [Mass/Vol] 0.5 mg/dL Normal 0.2 - 1 .0 mg/dL AO ADM SS Comment on above: Interpretive Data: U se of this assay is not recommended for patients undergoing treatment with eltrombopag due to the potential for falsely elevated results. Calcium [Mass/Vol] 9.5 mg/dL Normal 8.4 - 10. 2 mg/dL AO ADM SS Chloride [Moles/Vol] 105 mmol/L Normal 98 - 10 7 mmol/L AO ADM SS CO2 [Moles/Vol] 27 mmol/L Normal 22 - 29 mmol/L AO ADM SS Creatinine [Mass/Vol] 0.70 mg/dL Normal 0.55 - 1.02 mg/dL AO ADM SS Comment on above: Interpretive Data: T esting performed on Siem[employer] Dimension EXL analyzer using a modified kinetic Leti technique. Electrolyte Balance 9.0 mEq/L Normal 4.0 - 15 .0 mEq/L AO ADM SS Estimated Glomerular Filtration Rate 101 ml/min/1.73sqm Invalid Interpretation Code AO Chemistry S Comment on above: Interpretive Data: Stages of Chronic Kidney Disease (CKD) Stage Description eGFR(ml/min/1.73 sq.m.) CKD 1 Normal kidney function or >=90 normal kindney function with possible kidney damage (ex. Proteinuria) CKD 2 Kidney damage with mild loss 60-89 of kidney function CKD 3a Mild to moderate loss of kidney 45-59 function CKD 3b Moderate to severe loss of 30-44 of kindey function CKD 4 Severe loss of kidney function 15-29 CKD 5 Kidney failure <15 Note: (go live 2024) the eGFR calculation was updated to the 2020 CKD-EPI creatinine equation without a race factor to calculate the eGFR results. Globulin 3.8 G/dL Normal 1.5 - 3.8 G/dL AO ADM SS Glucose [Mass/Vol] 105 mg/dL Invalid Interpretation Code AO Chemistry S Comment on above: Interpretive Data: E stimated average glucose (eAG) is a calculated value from Hemoglobin A1C and is hostess party sales representative of the average blood glucose level in the last 2-3 month period. Normal range: less than 114 mg/dL Glucose [Mass/Vol] 81 mg/dL Normal 70 - 105 mg/dL AO ADM SS HbA1c (Bld) [Mass fraction] 5.3 % Normal 4.3 - 6.4 % AO ADM SS Potassium [Moles/Vol] 4.4 mmol/L Normal 3.5 - 5.1 mmol/L AO ADM SS Protein [Mass/Vol] 7.8 G/dL Normal 6.4 - 8.2 G/dL AO ADM SS Sodium [Moles/Vol] 141 mmol/L Normal 136 - 145 mmol/L AO ADM SS Urea nitrogen [Mass/Vol] 12 mg/dL Normal 7 - 18 mg/dL AO ADM SS Urea nitrogen/Creatinine [Mass ratio] 17 ratio Normal 7 - 27 ratio AO ADM SS LABORATORYOrdered By: Camila Joseph on 01-03-2025 Cholesterol [Mass/Vol] 163 mg/dL Normal 0 - 200 mg/dL AO ADM SS Comment on above: Interpretive Data: C holesterol Reference Interval: Less than 200 Desirable 200-239 Borderline high risk 240 and above High risk Cholesterol in HDL [Mass/Vol] 56 mg/dL Normal 40 - 60 mg/dL AO ADM SS Cholesterol in LDL [Mass/Vol] 91 mg/dL Normal 0 - 130 mg/dL AO ADM SS Triglyceride [Mass/Vol] 81 mg/dL Normal 0 - 150 mg/dL AO ADM SS Comment on above: Interpretive Data: T riglyceride Reference Interval: Less than 150 Normal 150-199 Borderline high risk 200-499 High risk 500 or higher Very high risk LIPIDon 01-03-2025 Cholesterol [Mass/Vol] 163 mg/dL Normal 0-200 [facility] Comment on above: Result Comment: Chol esterol Reference Interval: Less than 200 Desirable 200-239 Borderline high risk 240 and above High risk Performed By: #### A 1C, LIPID, CMP, GFR, VIDH #### [address] [address] Cholesterol in HDL [Mass/Vol] 56 mg/dL Normal 40-60 [facility] Comment on above: Performed By: #### A 1C, LIPID, CMP, GFR, VIDH #### [address] [address] Cholesterol in LDL [Mass/Vol] 91 mg/dL Normal 0-130 [facility] Comment on above: Performed By: #### A 1C, LIPID, CMP, GFR, VIDH #### [address] [address] Triglyceride [Mass/Vol] 81 mg/dL Normal 0-150 [facility] Comment on above: Result Comment: Trig lyceride Reference Interval: Less than 150 Normal 150-199 Borderline high risk 200-499 High risk 500 or higher Very high risk Performed By: #### A 1C, LIPID, CMP, GFR, VIDH #### [address] [address] VIDHon 01-03-2025 Vit. D 25-Hydroxy 69.9 ng/mL Normal [facility] Comment on above: Result Comment: Inte rpretive Values Based on Total 25(OH) Vitamin D: Deficient <20 ng/mL Insufficient 20 - <30 ng/mL Sufficient 30-100 ng/mL Performed By: #### A 1C, LIPID, CMP, GFR, VIDH #### [address] [id number] [place], [place] [address] XR CHEST 2 VIEWSon XR CHEST 2 VIEWS ORIGINAL HISTORY: Cough COMPARISON: No FINDINGS: There is mild hyperinflation. The lungs are otherwise clear. The cardiac silhouette is within normal size limits. The pulmonary vasculature is unremarkable in appearance. IMPRESSION: Clear lungs. Interpreted by: Kristine Segal MD Preliminary Report By: Kristine Segal MD Electronically signed By Kristine Segal MD Dictated Date: 12/30/2024 8:18:25 AM Prelim Date: 12/30/2024 8:19:09 AM Sign Date: 12/30/2024 8:19:09 AM Ordering Provider: GOLDY Aggarwal [facility] MRI SHOULDER W/O CONTRAST LE [facility] 09-13-2024 MRI SHOULDER W/O CONTRAST LEFT ORIGINAL EXAMINATION: MRI OF THE LEFT SHOULDER WITHOUT ZRHGAWQM12/24/2024 1:47 pm MRI of the left shoulder without contrast COMPARISON: MRI 09/26/2022 TECHNIQUE: Laterality: Left Multiplanar multisequence MRI of the left shoulder was performed without the administration of intravenous contrast. HISTORY: ORDERING SYSTEM PROVIDED HISTORY: Reason for Exam: STRAIN OF MUSCLES AND TENDON OF ROTATOR CUFF LEFT SHOULDER, previous shoulder surgery, no further details are given, date of surgery is unknown. Pain in the shoulder with radiation down the arm. FINDINGS: Glenohumeral joint: There is normal glenohumeral alignment on the axial images. No high-grade cartilage loss or other degenerative change is seen. There is small amount of glenohumeral effusion. Bone marrow: There is bone marrow edema in the greater tuberosity adjacent to a surgical anchor in this region. There is also some bone marrow reconversion most prominent in the proximal humerus. No other pathologic marrow abnormality is seen. Labrum: Truncated superior labrum and biceps labrum complex and truncated posterior labrum are most likely postsurgical changes from debridement. No other high-grade labral tear is seen. AC joint: There is resection at the AC joint. No evidence or cause for impingement is seen. There is moderate fluid in the subacromial subdeltoid bursa that extends into the AC joint space. Rotator cuff: There is interval supraspinatus tendon repair. The distal tendon however appears quite heterogeneous and abnormal in signal with attenuated thickness. High-grade undersurface and intrasubstance tear is suspected. No confirmation of a full-thickness tear on this study. No significant muscle atrophy. There is infraspinatus tendinopathy with intrasubstance tear without a high-grade tear. Mild muscle atrophy. Of the distal subscapularis tendon is severely attenuated in thickness indicating high-grade partial thickness tearing. No obvious full-thickness tear or retraction is confirmed. Mild muscle atrophy. The teres minor muscle and tendon are intact. Long biceps tendon: The tendon is normal in the distal bicipital groove. It is moderately attenuated in thickness in the proximal bicipital groove and at the level of the biceps anchor. Intra-articular segment is poorly visualized. Biceps labrum complex is also truncated and abnormal. Other soft tissues: The quadrilateral space is clear. Other muscles and soft tissues around the shoulder are unremarkable. IMPRESSION: There is moderate bone marrow edema at the greater tuberosity adjacent to is surgical anchor in this region. This should be correlated clinically and with radiographs, possibilities include posttraumatic contusion, changes related to surgical failure/loosening. Interval rotator cuff repair. The distal supraspinatus tendon is quite abnormal and attenuated in thickness indicating high-grade partial thickness tearing. Similar high-grade partial tearing of the subscapularis tendon. A full-thickness tear is not clearly seen on this study. Intrasubstance tearing of the infraspinatus tendon. Severely attenuated thickness of the long biceps tendon suggesting high-grade tear. Truncated superior and posterior labrum likely postsurgical debridement. Interpreted by: Alessandro Nye MD Preliminary Report By: Alessandro Nye MD Electronically signed By Alessandro Nye MD Dictated Date: 09/13/2024 12:54:51 PM Prelim Date: 09/13/2024 1:07:05 PM Sign Date: 09/13/2024 1:07:05 PM Ordering Provider: DAYRON Aggarwal [facility] .Auto Diffon 07-05-2024 Basophil, Absolute 0.1 10 3/mcL Normal 0.0-0.2 [facility] ([place]) Comment on above: Performed By: #### A DIFF, ANEU, A1C, VIDH, CMP, GFR, CBC #### [place] [address] [place], [place] [address] Basophils/100 WBC (Bld) 0.7 % Normal 0.0-2.5 [facility] ([place]) Comment on above: Performed By: #### A DIFF, ANEU, A1C, VIDH, CMP, GFR, CBC #### [address] [address] Eosinophil, Absolute 0.2 10 3/mcL Normal 0.0-0.4 [facility] ([place]) Comment on above: Performed By: #### A DIFF, ANEU, A1C, VIDH, CMP, GFR, CBC #### [address] [address] Eosinophils/100 WBC (Bld) 1.7 % Normal 0.0-7.0 [facility] ([place]) Comment on above: Performed By: #### A DIFF, ANEU, A1C, VIDH, CMP, GFR, CBC #### [address] [address] Lymphocyte, Absolute 2.5 10 3/mcL Normal 0.8-3.9 [facility] ([place]) Comment on above: Performed By: #### A DIFF, ANEU, A1C, VIDH, CMP, GFR, CBC #### [address] [address] Lymphocytes/100 WBC (Bld) 28.0 % Normal 10.0-50.0 [facility] ([place]) Comment on above: Performed By: #### A DIFF, ANEU, A1C, VIDH, CMP, GFR, CBC #### [address] [address] Monocyte, Absolute 0.7 10 3/mcL Normal 0.2-1.0 [facility] ([place]) Comment on above: Performed By: #### A DIFF, ANEU, A1C, VIDH, CMP, GFR, CBC #### [address] [address] Monocytes/100 WBC (Bld) 7.5 % Normal 1.7-13.0 [facility] ([place]) Comment on above: Performed By: #### A DIFF, ANEU, A1C, VIDH, CMP, GFR, CBC #### [address] [address] Neutrophils/100 WBC (Bld) 62.1 % Normal 37.0-80.0 [facility] ([place]) Comment on above: Performed By: #### A DIFF, ANEU, A1C, VIDH, CMP, GFR, CBC #### [address] [address] .GFRon 07-05-2024 GFR Non- 67 ml/min/1.73sqm Normal [facility] ([place]) Comment on above: Result Comment: GFR Population mean for , Non- Americans Ages 20-29 = 116 mL/min/1.73 sq.m. Ages 30-39 = 107 mL/min/1.73 sq.m. Ages 40-49 = 99 mL/min/1.73 sq.m. Ages 50-59 = 93 mL/min/1.73 sq.m. Ages 60-69 = 85 mL/min/1.73 sq.m. Ages 70+ = 75 mL/min/1.73 sq.m. Chronic Kidney Disease: Less than 60 mL/min/1.73 square meters End Stage Renal Disease: Less than 15 mL/min/1.73 square meters Performed By: #### A DIFF, ANEU, A1C, VIDH, CMP, GFR, CBC #### [address] [address] GFR 81 ml/min/1.73sqm Normal [facility] ([place]) Comment on above: Result Comment: GFR Population mean for , Non- Americans Ages 20-29 = 116 mL/min/1.73 sq.m. Ages 30-39 = 107 mL/min/1.73 sq.m. Ages 40-49 = 99 mL/min/1.73 sq.m. Ages 50-59 = 93 mL/min/1.73 sq.m. Ages 60-69 = 85 mL/min/1.73 sq.m. Ages 70+ = 75 mL/min/1.73 sq.m. Chronic Kidney Disease: Less than 60 mL/min/1.73 square meters End Stage Renal Disease: Less than 15 mL/min/1.73 square meters Performed By: #### A DIFF, ANEU, A1C, VIDH, CMP, GFR, CBC #### [address] [address] .NEUABSon 07-05-2024 Neutrophil, Absolute 5.5 10 3/mcL Normal 2.9-6.2 [facility] ([place]) Comment on above: Performed By: #### A DIFF, ANEU, A1C, VIDH, CMP, GFR, CBC #### [address] [address] A1Con 07-05-2024 Glucose [Mass/Vol] 88 mg/dL Normal [facility] ([place]) Comment on above: Result Comment: Vika mated Average Glucose calculated by equation ((28.7xA1C)-46.7) Estimated average glucose (eAG) is a calculated value from Hemoglobin A1C and is hostess party sales representative of the average blood glucose level in the last 2-3 month period. Normal range: less than 114 mg/dL Performed By: #### A DIFF, ANEU, A1C, VIDH, CMP, GFR, CBC #### [address] [address] HbA1c (Bld) [Mass fraction] 4.7 % Normal 4.3-6.4 [facility] ([place]) Comment on above: Performed By: #### A DIFF, ANEU, A1C, VIDH, CMP, GFR, CBC #### [address] [address] CBCon 07-05-2024 Erythrocyte distribution width (RBC) [Ratio] 13.5 % Normal 11.5-14.5 [facility] ([place]) Comment on above: Performed By: #### A DIFF, ANEU, A1C, VIDH, CMP, GFR, CBC #### [address] [address] Hematocrit (Bld) [Volume fraction] 41.4 % Normal 37.0-47.0 [facility] ([place]) Comment on above: Performed By: #### A DIFF, ANEU, A1C, VIDH, CMP, GFR, CBC #### [address] [address] Hgb 14.1 G/dL Normal 12.0-16.0 [facility] ([place]) Comment on above: Performed By: #### A DIFF, ANEU, A1C, VIDH, CMP, GFR, CBC #### [address] [address] MCH (RBC) [Entitic mass] 28.7 pg Normal 27.0-31.2 [facility] ([place] Comment on above: Performed By: #### A DIFF, ANEU, A1C, VIDH, CMP, GFR, CBC #### [place] [address] MCHC 34.0 G/dL Normal 33.0-37.0 [facility] ([place] Comment on above: Performed By: #### A DIFF, ANEU, A1C, VIDH, CMP, GFR, CBC #### [place] [address] MCV (RBC) [Entitic vol] 84.4 fL Normal 80.0-94.0 [facility] ([place] Comment on above: Performed By: #### A DIFF, ANEU, A1C, VIDH, CMP, GFR, CBC #### [address] [address] Platelet 344 10 3/mcL Normal 130-400 [facility] ([place]) Comment on above: Performed By: #### A DIFF, ANEU, A1C, VIDH, CMP, GFR, CBC #### [address] [address] Platelet mean volume (Bld) [Entitic vol] 10.4 fL Normal 7.4-10.4 [facility] ([place] Comment on above: Performed By: #### A DIFF, ANEU, A1C, VIDH, CMP, GFR, CBC #### [address] [address] RBC 4.90 10 6/mcL Normal 4.20-5.40 [facility] ([place]) Comment on above: Performed By: #### A DIFF, ANEU, A1C, VIDH, CMP, GFR, CBC #### [address] [address] WBC 8.8 10 3/mcL Normal 4.6-10.8 [facility] ([place]) Comment on above: Performed By: #### A DIFF, ANEU, A1C, VIDH, CMP, GFR, CBC #### [address] [address] CMPon 07-05-2024 Albumin Level 3.9 G/dL Normal 3.5-5.0 [facility] ([place] Comment on above: Performed By: #### A DIFF, ANEU, A1C, VIDH, CMP, GFR, CBC #### [address] [address] Albumin/Globulin [Mass ratio] 1.0 {ratio} Low 1.1-2.5 [facility] ([place]) Comment on above: Performed By: #### A DIFF, ANEU, A1C, VIDH, CMP, GFR, CBC #### [address] [address] ALP [Catalytic activity/Vol] 101 U/L Normal 40-135 [facility] ([place]) Comment on above: Performed By: #### A DIFF, ANEU, A1C, VIDH, CMP, GFR, CBC #### [address] [address] ALT [Catalytic activity/Vol] 18 U/L Normal 14-59 [facility] ([place]) Comment on above: Performed By: #### A DIFF, ANEU, A1C, VIDH, CMP, GFR, CBC #### [address] [address] AST [Catalytic activity/Vol] 9 U/L Low 10-40 [facility] ([place]) Comment on above: Performed By: #### A DIFF, ANEU, A1C, VIDH, CMP, GFR, CBC #### [address] [address] Bili Total 0.4 mg/dL Normal 0.2-1.0 [facility] ([place]) Comment on above: Result Comment: Use of this assay is not recommended for patients undergoing treatment with eltrombopag due to the potential for falsely elevated results. Performed By: #### A DIFF, ANEU, A1C, VIDH, CMP, GFR, CBC #### [address] [address] BUN/Creatinine Ratio 15 ratio Normal 7-27 [facility] [facility] ([place]) Comment on above: Performed By: #### A DIFF, ANEU, A1C, VIDH, CMP, GFR, CBC #### [address] [address] Calcium [Mass/Vol] 9.2 mg/dL Normal 8.4-10.2 [facility] ([place]) Comment on above: Performed By: #### A DIFF, ANEU, A1C, VIDH, CMP, GFR, CBC #### [address] [address] Chloride [Moles/Vol] 104 mmol/L Normal 98-107 [facility] ([place]) Comment on above: Performed By: #### A DIFF, ANEU, A1C, VIDH, CMP, GFR, CBC #### [address] [address] CO2 [Moles/Vol] 26 mmol/L Normal 22-29 [facility] ([place]) Comment on above: Performed By: #### A DIFF, ANEU, A1C, VIDH, CMP, GFR, CBC #### [address] [address] Creatinine [Mass/Vol] 0.88 mg/dL Normal 0.55-1.02 [facility] ([place]) Comment on above: Performed By: #### A DIFF, ANEU, A1C, VIDH, CMP, GFR, CBC #### [address] [address] Electrolyte Balance 10.0 mEq/L Normal 4.0-15.0 [facility] ([place]) Comment on above: Performed By: #### A DIFF, ANEU, A1C, VIDH, CMP, GFR, CBC #### [address] [address] Globulin 3.9 G/dL Normal [facility] ([place]) Comment on above: Performed By: #### A DIFF, ANEU, A1C, VIDH, CMP, GFR, CBC #### [address] [address] Glucose [Mass/Vol] 82 mg/dL Normal 70-105 [facility] ([place]) Comment on above: Performed By: #### A DIFF, ANEU, A1C, VIDH, CMP, GFR, CBC #### [address] [address] Potassium [Moles/Vol] 4.7 mmol/L Normal 3.5-5.1 [facility] ([place]) Comment on above: Performed By: #### A DIFF, ANEU, A1C, VIDH, CMP, GFR, CBC #### [address] [address] Sodium [Moles/Vol] 140 mmol/L Normal 136-145 [facility] ([place]) Comment on above: Performed By: #### A DIFF, ANEU, A1C, VIDH, CMP, GFR, CBC #### [address] [address] Total Protein 7.8 G/dL Normal 6.4-8.2 [facility]) Comment on above: Performed By: #### A DIFF, ANEU, A1C, VIDH, CMP, GFR, CBC #### [address] [address] Urea nitrogen [Mass/Vol] 13 mg/dL Normal 7-18 [facility] ([place]) Comment on above: Performed By: #### A DIFF, ANEU, A1C, VIDH, CMP, GFR, CBC #### [address] [address] LABORATORYOrdered By: SYSTEM SYSTEM on 07-05-2024 25-hydroxyvitamin D3 [Mass/Vol] 48.5 ng/mL Invalid Interpretation Code AO ADM SS Comment on above: Interpretive Data: I nterpretive Values Based on Total 25(OH) Vitamin D: Deficient <20 ng/mL Insufficient 20 - <30 ng/mL Sufficient 30-100 ng/mL Albumin BCP dye [Mass/Vol] 3.9 G/dL Normal 3.5 - 5.0 G/dL AO ADM SS Albumin/Globulin [Mass ratio] 1.0 {ratio} Low 1.1 - 2.5 ratio AO ADM SS ALP [Catalytic activity/Vol] 101 U/L Normal 40 - 135 U/L AO ADM SS ALT With P-5'-P [Catalytic activity/Vol] 18 U/L Normal 14 - 59 U/L AO ADM SS AST With P-5'-P [Catalytic activity/Vol] 9 U/L Low 10 - 40 U/L AO ADM SS Basophil, Absolute 0.1 103/mcL Normal 0.0 - 0.2 10^3/mcL AO Workflow SS Basophils/100 WBC (Bld) 0.7 % Normal 0.0 - 2.5 % AO Workflow SS Bilirubin [Mass/Vol] 0.4 mg/dL Normal 0.2 - 1 .0 mg/dL AO ADM SS Comment on above: Interpretive Data: U se of this assay is not recommended for patients undergoing treatment with eltrombopag due to the potential for falsely elevated results. Calcium [Mass/Vol] 9.2 mg/dL Normal 8.4 - 10. 2 mg/dL AO ADM SS Chloride [Moles/Vol] 104 mmol/L Normal 98 - 10 7 mmol/L AO ADM SS CO2 [Moles/Vol] 26 mmol/L Normal 22 - 29 mmol/L AO ADM SS Creatinine [Mass/Vol] 0.88 mg/dL Normal 0.55 - 1.02 mg/dL AO ADM SS Electrolyte Balance 10.0 mEq/L Normal 4.0 - 15 .0 mEq/L AO ADM SS Eosinophil, Absolute 0.2 103/mcL Normal 0.0 - 0 .4 10^3/mcL AO Workflow SS Eosinophils/100 WBC (Bld) 1.7 % Normal 0.0 - 7.0 % AO Workflow SS Erythrocyte distribution width (RBC) [Ratio] 13.5 % Normal 11.5 - 14.5 % AO Workflow SS GFR/1.73 sq M.predicted among blacks MDRD (S/P/Bld) [Vol rate/Area] 81 ml/min/1.73sqm Invalid Interpretation Code AO Chemistry S Comment on above: Interpretive Data: GFR Population mean for , Non- Americans Ages 20-29 = 116 mL/min/1.73 sq.m. Ages 30-39 = 107 mL/min/1.73 sq.m. Ages 40-49 = 99 mL/min/1.73 sq.m. Ages 50-59 = 93 mL/min/1.73 sq.m. Ages 60-69 = 85 mL/min/1.73 sq.m. Ages 70+ = 75 mL/min/1.73 sq.m. Chronic Kidney Disease: Less than 60 mL/min/1.73 square meters End Stage Renal Disease: Less than 15 mL/min/1.73 square meters GFR/1.73 sq M.predicted among non-blacks MDRD (S/P/Bld) [Vol rate/Area] 67 ml/min/1.73sqm Invalid Interpretation Code AO Chemistry S Comment on above: Interpretive Data: GFR Population mean for , Non- Americans Ages 20-29 = 116 mL/min/1.73 sq.m. Ages 30-39 = 107 mL/min/1.73 sq.m. Ages 40-49 = 99 mL/min/1.73 sq.m. Ages 50-59 = 93 mL/min/1.73 sq.m. Ages 60-69 = 85 mL/min/1.73 sq.m. Ages 70+ = 75 mL/min/1.73 sq.m. Chronic Kidney Disease: Less than 60 mL/min/1.73 square meters End Stage Renal Disease: Less than 15 mL/min/1.73 square meters Globulin 3.9 G/dL Invalid Interpretation Code AO ADM SS Glucose [Mass/Vol] 88 mg/dL Invalid Interpretation Code AO Chemistry S Comment on above: Interpretive Data: E stimated average glucose (eAG) is a calculated value from Hemoglobin A1C and is hostess party sales representative of the average blood glucose level in the last 2-3 month period. Normal range: less than 114 mg/dL Glucose [Mass/Vol] 82 mg/dL Normal 70 - 105 mg/dL AO ADM SS HbA1c (Bld) [Mass fraction] 4.7 % Normal 4.3 - 6.4 % AO ADM SS Hematocrit (Bld) [Volume fraction] 41.4 % Normal 37.0 - 47.0 % AO Workflow SS Hemoglobin (Bld) [Mass/Vol] 14.1 G/dL Normal 12.0 - 16.0 G/dL AO Workflow SS Lymphocyte, Absolute 2.5 103/mcL Normal 0.8 - 3 .9 10^3/mcL AO Workflow SS Lymphocytes/100 WBC (Bld) 28.0 % Normal 10.0 - 50.0 % AO Workflow SS MCH (RBC) [Entitic mass] 28.7 pg Normal 27.0 - 31.2 pg AO Workflow SS MCHC 34.0 G/dL Normal 33.0 - 37.0 G/dL AO Workflow SS MCV (RBC) [Entitic vol] 84.4 fL Normal 80.0 - 94.0 fL AO Workflow SS Monocyte, Absolute 0.7 103/mcL Normal 0.2 - 1.0 10^3/mcL AO Workflow SS Monocytes/100 WBC (Bld) 7.5 % Normal 1.7 - 13.0 % AO Workflow SS Neutrophil, Absolute 5.5 103/mcL Normal 2.9 - 6 .2 10^3/mcL AO Workflow SS Neutrophils/100 WBC (Bld) 62.1 % Normal 37.0 - 80.0 % AO Workflow SS Platelet mean volume (Bld) [Entitic vol] 10.4 fL Normal 7.4 - 10.4 fL AO Workflow SS Platelets (Bld) [#/Vol] 344 103/mcL Normal 130 - 400 10^3/mcL AO Workflow SS Potassium [Moles/Vol] 4.7 mmol/L Normal 3.5 - 5.1 mmol/L AO ADM SS Protein [Mass/Vol] 7.8 G/dL Normal 6.4 - 8.2 G/dL AO ADM SS RBC (Bld) [#/Vol] 4.90 106/mcL Normal 4.20 - 5.4 0 10^6/mcL AO Workflow SS Sodium [Moles/Vol] 140 mmol/L Normal 136 - 145 mmol/L AO ADM SS Urea nitrogen [Mass/Vol] 13 mg/dL Normal 7 - 18 mg/dL AO ADM SS Urea nitrogen/Creatinine [Mass ratio] 15 ratio Normal 7 - 27 ratio AO ADM SS WBC (Bld) [#/Vol] 8.8 103/mcL Normal 4.6 - 10.8 10^3/mcL AO Workflow SS VIDHon 07-05-2024 Vit. D 25-Hydroxy 48.5 ng/mL Normal [facility] ([place]) Comment on above: Result Comment: Inte rpretive Values Based on Total 25(OH) Vitamin D: Deficient <20 ng/mL Insufficient 20 - <30 ng/mL Sufficient 30-100 ng/mL Performed By: #### A DIFF, ANEU, A1C, VIDH, CMP, GFR, CBC #### [id number] [place], [place] [address] Flow Floor Attendant Cytology Reporton 2023 Flow Floor Attendant Cytology Report . Pathology Reports Accession: Collected Date/Time: Received Date/Time: Pathologist: [id number] 05/15/2024 10:17 EDT 05/15/2024 18:00 EDT Flow Floor Attendant Cytology Report SPECIMEN: Specimen Description: Liquid Prep w/ HPV Specimen: Cervical Screening or Diagnostic: Screening RELEVANT HISTORY: LMP: 2 years ago Abnormal Bleeding: Yes SPECIMEN ADEQUACY: SATISFACTORY FOR EVALUATION Endocervical/Transform ational zone component present INTERPRETATION/RESULTS : NEGATIVE FOR INTRAEPITHELIAL LESION OR MALIGNANCY HIGH RISK HPV TESTING: Event Code Result HPV Interp See Interp HPVN HPV Interp Text: High Risk HPV Typing: NEGATIVE HPV types 16, 18, 31, 33, 35, 39, 45, 51, 52, 56, 58, 59, 66 and 68 DNA were undetectable or below the pre-set threshold. The rika High-Risk HPV DNA Test is not intended for use as a screening device for Pap normal women under age 30 and is not intended to substitute for regular Pap screening. The rika High-Risk HPV DNA Test is designed to augment existing methods for the detection of cervical disease and should be used in conjunction with clinical information derived from other diagnostic and screening tests, physical examinations and full medical history in accordance with appropriate patient management procedures. NOTE: A negative result does not preclude the presence of HPV infection because results depend on adequate specimen collection, absence of inhibitors and sufficient DNA to be detected. As of: 05/17/24 16:35 EDT COMMENT: This Pap Test was successfully processed and evaluated with the assistance of the [email or web address] ThinPrep Test Imaging System. Pathology Reports Accession: Collected Date/Time: Received Date/Time: Pathologist: [id number] 05/15/2024 10:17 EDT 05/15/2024 18:00 EDT Electronically Signed by Pathology report verified by [facility] Screened by: [place] Electronically signed by Jeni BARRON (ASCP) Sign-Out Date: 05/17/2024 16:35 Performing Lab: [facility], [address] [place] [address] Pathology Dept Disclaimer The Pap test is a screening test for cervical cancer. As evidenced by published data, it is subject to both inherent false negative and false positive results. Your patient's results should be interpreted in context with pertinent clinical history including gynecological examination. Normal [facility] ([place]) HPVon 05-17-2024 HPV Interp Normal See Interp HPVN [facility]) Comment on above: Order Comment: Order placed by AP_HPV_ORDER rule from [id number] Result Comment: High Risk HPV Typing: NEGATIVE HPV types 16, 18, 31, 33, 35, 39, 45, 51, 52, 56, 58, 59, 66 and 68 DNA were undetectable or below the pre-set threshold. The rika High-Risk HPV DNA Test is not intended for use as a screening device for Pap normal women under age 30 and is not intended to substitute for regular Pap screening. The rika High-Risk HPV DNA Test is designed to augment existing methods for the detection of cervical disease and should be used in conjunction with clinical information derived from other diagnostic and screening tests, physical examinations and full medical history in accordance with appropriate patient management procedures. NOTE: A negative result does not preclude the presence of HPV infection because results depend on adequate specimen collection, absence of inhibitors and sufficient DNA to be detected. See Interp HPVN Performed By: #### H PV #### [place] [address] HPV Source Cervix Normal [facility] ([place]) Comment on above: Order Comment: Order placed by AP_HPV_ORDER rule from [id number] Performed By: #### H PV #### [place] [address] LABORATORYOrdered By: Marcelo Samayoa on 05-15-2024 HPV Interp High Risk HPV Typing : NEGATIVEHPV types 16, 18, 31, 33, 35, 39, 45, 51, 52, 56, 58, 59, 66 and 68 DNA wereundetectable or below the pre-set threshold.The rika High-Risk HPV DNA Test is not intended for use as a screening device forPap normal women under age 30 and is not intended to substitute for regular Papscreening.The rika High-Risk HPV DNA Test is designed to augment existing methods for thedetection of cervical disease and should be used in conjunction with clinicalinformation derived from other diagnostic and screening tests, physical examinationsand full medical history in accordance with appropriate patient managementprocedures.N OTE: A negative result does not preclude the presence of HPV infection because resultsdepend on adequate specimen collection, absence of inhibitors and sufficientDNA to be detected. Normal See Interp HPVN Auto Viro/Sero SS Specimen source Nom (Unsp spec) Cervix (05/15/24 10:17 AM) Normal Auto Viro/Sero SS .GFRon 12-08-2023 GFR 96 ml/min/1.73sqm Normal [facility] ([place]) Comment on above: Result Comment: GFR Population mean for , Non- Americans Ages 20-29 = 116 mL/min/1.73 sq.m. Ages 30-39 = 107 mL/min/1.73 sq.m. Ages 40-49 = 99 mL/min/1.73 sq.m. Ages 50-59 = 93 mL/min/1.73 sq.m. Ages 60-69 = 85 mL/min/1.73 sq.m. Ages 70+ = 75 mL/min/1.73 sq.m. Chronic Kidney Disease: Less than 60 mL/min/1.73 square meters End Stage Renal Disease: Less than 15 mL/min/1.73 square meters Performed By: #### A DIFF, ANEU, A1C, VIDH, CMP, GFR, CBC #### [address] [address] GFR Non- 79 ml/min/1.73sqm Normal [facility] ([place]) Comment on above: Result Comment: GFR Population mean for , Non- Americans Ages 20-29 = 116 mL/min/1.73 sq.m. Ages 30-39 = 107 mL/min/1.73 sq.m. Ages 40-49 = 99 mL/min/1.73 sq.m. Ages 50-59 = 93 mL/min/1.73 sq.m. Ages 60-69 = 85 mL/min/1.73 sq.m. Ages 70+ = 75 mL/min/1.73 sq.m. Chronic Kidney Disease: Less than 60 mL/min/1.73 square meters End Stage Renal Disease: Less than 15 mL/min/1.73 square meters Performed By: #### A DIFF, ANEU, A1C, VIDH, CMP, GFR, CBC #### [address] [address] A1Con 12-08-2023 HbA1c (Bld) [Mass fraction] 5.4 % Normal 4.3-6.4 [facility] ([place]) Comment on above: Performed By: #### A DIFF, ANEU, A1C, VIDH, CMP, GFR, CBC #### [address] [address] CMPon 12-08-2023 Albumin Level 3.8 G/dL Normal 3.5-5.0 [facility] ([place]) Comment on above: Performed By: #### A DIFF, ANEU, A1C, VIDH, CMP, GFR, CBC #### [address] [address] Albumin/Globulin [Mass ratio] 1.1 {ratio} Normal 1.1-2.5 [facility]) Comment on above: Performed By: #### A DIFF, ANEU, A1C, VIDH, CMP, GFR, CBC #### [address] [address] ALP [Catalytic activity/Vol] 100 U/L Normal 40-135 [facility] ([place]) Comment on above: Performed By: #### A DIFF, ANEU, A1C, VIDH, CMP, GFR, CBC #### [address] [address] ALT [Catalytic activity/Vol] 25 U/L Normal 14-59 [facility] ([place]) Comment on above: Performed By: #### A DIFF, ANEU, A1C, VIDH, CMP, GFR, CBC #### [address] [address] AST [Catalytic activity/Vol] 13 U/L Normal 10-40 [facility] ([place]) Comment on above: Performed By: #### A DIFF, ANEU, A1C, VIDH, CMP, GFR, CBC #### [address] [address] Bili Total 0.4 mg/dL Normal 0.2-1.0 [facility] ([place]) Comment on above: Result Comment: Use of this assay is not recommended for patients undergoing treatment with eltrombopag due to the potential for falsely elevated results. Performed By: #### A DIFF, ANEU, A1C, VIDH, CMP, GFR, CBC #### [address] [address] BUN/Creatinine Ratio 16 ratio Normal 7-27 [facility] ([place]) Comment on above: Performed By: #### A DIFF, ANEU, A1C, VIDH, CMP, GFR, CBC #### [address] [address] Calcium [Mass/Vol] 9.7 mg/dL Normal 8.4-10.2 [facility] ([place]) Comment on above: Performed By: #### A DIFF, ANEU, A1C, VIDH, CMP, GFR, CBC #### [address] [address] Chloride [Moles/Vol] 107 mmol/L Normal 98-107 [facility] ([place]) Comment on above: Performed By: #### A DIFF, ANEU, A1C, VIDH, CMP, GFR, CBC #### [address] [address] CO2 [Moles/Vol] 26 mmol/L Normal 22-29 [facility] ([place]) Comment on above: Performed By: #### A DIFF, ANEU, A1C, VIDH, CMP, GFR, CBC #### [address] [address] Creatinine [Mass/Vol] 0.76 mg/dL Normal 0.55-1.02 [facility] ([place]) Comment on above: Performed By: #### A DIFF, ANEU, A1C, VIDH, CMP, GFR, CBC #### [address] [address] Electrolyte Balance 13.0 mEq/L Normal 4.0-15.0 [facility] ([place]) Comment on above: Performed By: #### A DIFF, ANEU, A1C, VIDH, CMP, GFR, CBC #### [address] [address] Globulin 3.6 G/dL Normal [facility] ([place]) Comment on above: Performed By: #### A DIFF, ANEU, A1C, VIDH, CMP, GFR, CBC #### [address] [address] Glucose [Mass/Vol] 96 mg/dL Normal 70-105 [facility] ([place]) Comment on above: Performed By: #### A DIFF, ANEU, A1C, VIDH, CMP, GFR, CBC #### [address] [address] Potassium [Moles/Vol] 5.2 mmol/L High 3.5-5.1 [facility] ([place]) Comment on above: Performed By: #### A DIFF, ANEU, A1C, VIDH, CMP, GFR, CBC #### [address] [address] Sodium [Moles/Vol] 146 mmol/L High 136-145 [facility] ([place]) Comment on above: Performed By: #### A DIFF, ANEU, A1C, VIDH, CMP, GFR, CBC #### [address] [address] Total Protein 7.4 G/dL Normal 6.4-8.2 [facility] ([place]) Comment on above: Performed By: #### A DIFF, ANEU, A1C, VIDH, CMP, GFR, CBC #### [address] [address] Urea nitrogen [Mass/Vol] 12 mg/dL Normal 7-18 [facility] ([place]) Comment on above: Performed By: #### A DIFF, ANEU, A1C, VIDH, CMP, GFR, CBC #### [address] [address] LIPIDon 12-08-2023 Cholesterol [Mass/Vol] 179 mg/dL Normal 0-200 [facility] ([place]) Comment on above: Result Comment: Chol esterol Reference Interval: Less than 200 Desirable 200-239 Borderline high risk 240 and above High risk Performed By: #### A DIFF, ANEU, A1C, VIDH, CMP, GFR, CBC #### [address] [address] Cholesterol in HDL [Mass/Vol] 65 mg/dL High 40-60 [facility] ([place]) Comment on above: Performed By: #### A DIFF, ANEU, A1C, VIDH, CMP, GFR, CBC #### [address] [address] Cholesterol in LDL [Mass/Vol] 98 mg/dL Normal 0-130 [facility] ([place]) Comment on above: Performed By: #### A DIFF, ANEU, A1C, VIDH, CMP, GFR, CBC #### [address] [address] Triglyceride [Mass/Vol] 78 mg/dL Normal 0-150 [facility] ([place]) Comment on above: Result Comment: Trig lyceride Reference Interval: Less than 150 Normal 150-199 Borderline high risk 200-499 High risk 500 or higher Very high risk Performed By: #### A DIFF, ANEU, A1C, VIDH, CMP, GFR, CBC #### [address] [address] VIDHon 12-08-2023 Vit. D 25-Hydroxy 39.7 ng/mL Normal [facility] ([place]) Comment on above: Result Comment: Inte rpretive Values Based on Total 25(OH) Vitamin D: Deficient <20 ng/mL Insufficient 20 - <30 ng/mL Sufficient 30-100 ng/mL Performed By: #### V IDH, CMP, GFR, LIPID, A1C #### [address] [address] LABORATORYOrdered By: SYSTEM SYSTEM on 06-15-2023 Albumin BCP dye [Mass/Vol] 4.3 G/dL Invalid Interpretation Code 3.5 - 5.0 G/dL AO ADM SS Albumin/Globulin [Mass ratio] 1.2 {ratio} Invalid Interpretation Code 1.1 - 2.5 ratio AO ADM SS ALP [Catalytic activity/Vol] 112 U/L Invalid Interpretation Code 40 - 135 U/L AO ADM SS ALT With P-5'-P [Catalytic activity/Vol] 21 U/L Invalid Interpretation Code 14 - 59 U/L AO ADM SS AST With P-5'-P [Catalytic activity/Vol] 13 U/L Invalid Interpretation Code 10 - 40 U/L AO ADM SS Bilirubin [Mass/Vol] 0.5 mg/dL Invalid Interpretation Code 0.2 - 1.0 mg/dL AO ADM SS Comment on above: Interpretive Data: U se of this assay is not recommended for patients undergoing treatment with eltrombopag due to the potential for falsely elevated results. Calcium [Mass/Vol] 9.5 mg/dL Invalid Interpretation Code 8.4 - 10.2 mg/dL AO ADM SS Chloride [Moles/Vol] 101 mmol/L Invalid Interpretation Code 98 - 107 mmol/L AO ADM SS CO2 [Moles/Vol] 28 mmol/L Invalid Interpretation Code 22 - 29 mmol/L AO ADM SS Creatinine [Mass/Vol] 0.84 mg/dL Invalid Interpretation Code 0.55 - 1.02 mg/dL AO ADM SS Electrolyte Balance 10.0 mEq/L Invalid Interpretation Code 4.0 - 15.0 mEq/L AO ADM SS GFR/1.73 sq M.predicted among blacks MDRD (S/P/Bld) [Vol rate/Area] 86 ml/min/1.73sqm Invalid Interpretation Code AO Chemistry S Comment on above: Interpretive Data: GFR Population mean for , Non- Americans Ages 20-29 = 116 mL/min/1.73 sq.m. Ages 30-39 = 107 mL/min/1.73 sq.m. Ages 40-49 = 99 mL/min/1.73 sq.m. Ages 50-59 = 93 mL/min/1.73 sq.m. Ages 60-69 = 85 mL/min/1.73 sq.m. Ages 70+ = 75 mL/min/1.73 sq.m. Chronic Kidney Disease: Less than 60 mL/min/1.73 square meters End Stage Renal Disease: Less than 15 mL/min/1.73 square meters GFR/1.73 sq M.predicted among non-blacks MDRD (S/P/Bld) [Vol rate/Area] 71 ml/min/1.73sqm Invalid Interpretation Code AO Chemistry S Comment on above: Interpretive Data: GFR Population mean for , Non- Americans Ages 20-29 = 116 mL/min/1.73 sq.m. Ages 30-39 = 107 mL/min/1.73 sq.m. Ages 40-49 = 99 mL/min/1.73 sq.m. Ages 50-59 = 93 mL/min/1.73 sq.m. Ages 60-69 = 85 mL/min/1.73 sq.m. Ages 70+ = 75 mL/min/1.73 sq.m. Chronic Kidney Disease: Less than 60 mL/min/1.73 square meters End Stage Renal Disease: Less than 15 mL/min/1.73 square meters Globulin 3.7 G/dL Invalid Interpretation Code AO ADM SS Glucose [Mass/Vol] 105 mg/dL Invalid Interpretation Code 70 - 105 mg/dL AO ADM SS Potassium [Moles/Vol] 4.7 mmol/L Invalid Interpretation Code 3.5 - 5.1 mmol/L AO ADM SS Protein [Mass/Vol] 8.0 G/dL Invalid Interpretation Code 6.4 - 8.2 G/dL AO ADM SS Sodium [Moles/Vol] 139 mmol/L Invalid Interpretation Code 136 - 145 mmol/L AO ADM SS Urea nitrogen [Mass/Vol] 12 mg/dL Invalid Interpretation Code 7 - 18 mg/dL AO ADM SS Urea nitrogen/Creatinine [Mass ratio] 14 ratio Invalid Interpretation Code 7 - 27 ratio AO ADM SS LABORATORYOrdered By: Sally Zamorano on 05-19-2022 Albumin BCP dye [Mass/Vol] 4.1 G/dL Invalid Interpretation Code 3.5 - 5.0 G/dL AO ADM SS Albumin/Globulin [Mass ratio] 1.3 {ratio} Invalid Interpretation Code 1.1 - 2.5 ratio AO ADM SS ALP [Catalytic activity/Vol] 100 U/L Invalid Interpretation Code 40 - 135 U/L AO ADM SS ALT With P-5'-P [Catalytic activity/Vol] 25 U/L Invalid Interpretation Code 14 - 59 U/L AO ADM SS AST With P-5'-P [Catalytic activity/Vol] 15 U/L Invalid Interpretation Code 10 - 40 U/L AO ADM SS Bilirubin [Mass/Vol] 0.4 mg/dL Invalid Interpretation Code 0.2 - 1.0 mg/dL AO ADM SS Calcium [Mass/Vol] 9.4 mg/dL Invalid Interpretation Code 8.4 - 10.2 mg/dL AO ADM SS Chloride [Moles/Vol] 103 mmol/L Invalid Interpretation Code 98 - 107 mmol/L AO ADM SS Cholesterol [Mass/Vol] 192 mg/dL Invalid Interpretation Code 0 - 200 mg/dL AO ADM SS Cholesterol in HDL [Mass/Vol] 71 mg/dL Invalid Interpretation Code 40 - 60 mg/dL AO ADM SS Cholesterol in LDL [Mass/Vol] 105 mg/dL Invalid Interpretation Code 0 - 130 mg/dL AO ADM SS CO2 [Moles/Vol] 26 mmol/L Invalid Interpretation Code 22 - 29 mmol/L AO ADM SS Creatinine [Mass/Vol] 0.78 mg/dL Invalid Interpretation Code 0.55 - 1.02 mg/dL AO ADM SS Electrolyte Balance 11.0 mEq/L Invalid Interpretation Code 4.0 - 15.0 mEq/L AO ADM SS Globulin 3.1 G/dL Invalid Interpretation Code AO ADM SS Glucose [Mass/Vol] 104 mg/dL Invalid Interpretation Code 70 - 105 mg/dL AO ADM SS Potassium [Moles/Vol] 4.7 mmol/L Invalid Interpretation Code 3.5 - 5.1 mmol/L AO ADM SS Protein [Mass/Vol] 7.2 G/dL Invalid Interpretation Code 6.4 - 8.2 G/dL AO ADM SS Sodium [Moles/Vol] 140 mmol/L Invalid Interpretation Code 136 - 145 mmol/L AO ADM SS Triglyceride [Mass/Vol] 78 mg/dL Invalid Interpretation Code 0 - 150 mg/dL AO ADM SS TSH Qn 1.04 m[IU]/L Invalid Interpretation Code 0.36 - 3.74 mcIU/mL AO ADM SS Urea nitrogen [Mass/Vol] 16 mg/dL Invalid Interpretation Code 7 - 18 mg/dL AO ADM SS Urea nitrogen/Creatinine [Mass ratio] 21 ratio Invalid Interpretation Code 7 - 27 ratio AO ADM SS Vit. D 25-Hydroxy 37.4 ng/mL Invalid Interpretation Code AO ADM SS LABORATORYOrdered By: Sally Glynn on 05-19-2022 Basophil, Absolute 0.0 103/mcL Invalid Interpretation Code 0.0 - 0.2 10^3/mcL AO Workflow SS Basophils/100 WBC (Bld) 0.6 % Invalid Interpretation Code 0.0 - 2.5 % AO Workflow SS Eosinophil, Absolute 0.3 103/mcL Invalid Interpretation Code 0.0 - 0.4 10^3/mcL AO Workflow SS Eosinophils/100 WBC (Bld) 3.3 % Invalid Interpretation Code 0.0 - 7.0 % AO Workflow SS Erythrocyte distribution width (RBC) [Ratio] 13.7 % Invalid Interpretation Code 11.5 - 14.5 % AO Workflow SS Hematocrit (Bld) [Volume fraction] 40.4 % Invalid Interpretation Code 37.0 - 47.0 % AO Workflow SS Hemoglobin (Bld) [Mass/Vol] 13.4 G/dL Invalid Interpretation Code 12.0 - 16.0 G/dL AO Workflow SS Lymphocyte, Absolute 2.6 103/mcL Invalid Interpretation Code 0.8 - 3.9 10^3/mcL AO Workflow SS Lymphocytes/100 WBC (Bld) 30.6 % Invalid Interpretation Code 10.0 - 50.0 % AO Workflow SS MCH (RBC) [Entitic mass] 27.9 pg Invalid Interpretation Code 27.0 - 31.2 pg AO Workflow SS MCHC 33.2 G/dL Invalid Interpretation Code 33.0 - 37.0 G/dL AO Workflow SS MCV (RBC) [Entitic vol] 83.9 fL Invalid Interpretation Code 80.0 - 94.0 fL AO Workflow SS Monocyte, Absolute 0.6 103/mcL Invalid Interpretation Code 0.2 - 1.0 10^3/mcL AO Workflow SS Monocytes/100 WBC (Bld) 7.5 % Invalid Interpretation Code 1.7 - 13.0 % AO Workflow SS Neutrophil, Absolute 4.9 103/mcL Invalid Interpretation Code 2.9 - 6.2 10^3/mcL AO Workflow SS Neutrophils/100 WBC (Bld) 58.0 % Invalid Interpretation Code 37.0 - 80.0 % AO Workflow SS Platelet mean volume (Bld) [Entitic vol] 10.9 fL Invalid Interpretation Code 7.4 - 10.4 fL AO Workflow SS Platelets (Bld) [#/Vol] 332 103/mcL Invalid Interpretation Code 130 - 400 10^3/mcL AO Workflow SS RBC (Bld) [#/Vol] 4.81 106/mcL Invalid Interpretation Code 4.20 - 5.40 10^6/mcL AO Workflow SS WBC 8.4 103/mcL Invalid Interpretation Code 4.6 - 10.8 10^3/mcL AO Workflow SS LABORATORYOrdered By: SYSTEM SYSTEM on 05-19-2022 GFR 94 ml/min/1.73sqm Invalid Interpretation Code AO Chemistry S GFR Non- 77 ml/min/1.73sqm Invalid Interpretation Code AO Chemistry S Monocyte distribution width Auto (Bld) [Entitic vol] Not Performed 1 *NA* (05/19/22 8:28 AM) Invalid Interpretation Code 0.00 - 20.00 AO Hematology S Comment on above: Result Comment: MDW testing performed only on adult ER patients between the ages of 18-89 years. TSHon 06-02-2017 Thyroid stimulating hormone (TSH) 0.72 mcIU/mL Normal 0.27-4.20 [facility] Comment on above: Performed By: #### T ####[address] [address] Vital Signs Date Time Vital Sign Value Performing Clinician Doroteo oscar 02-01-2022 14:28-0400 Body height 162.[address] Federico Vincent Work Phone: [facility] Work Phone: 02-01-2022 14:28-0400 Body mass index (BMI) [Ratio] 37 kg/m2 Dr. Federico Vincent Work Phone: [facility] Work Phone: 02-01-2022 14:28-0400 Body weight 97.[address] Federico Vincent Work Phone: [facility] Work Phone: 02-01-2022 14:28-0400 Diastolic blood pressure 87 mm[Hg] Dr. Federico Vincent Work Phone: [facility] Work Phone: 02-01-2022 14:28-0400 Respiratory rate 18 /min Dr. Federico Vincent Work Phone: [facility] Work Phone: 02-01-2022 14:28-0400 Systolic blood pressure 126 mm[Hg] Dr. Federico Vincent Work Phone: [facility] Work Phone: Encounters Encounter Date Encounter Type Care Provider Facility Start: 08-14-2025 ambulatory Goldy Orellana EMERGENCY ROOM TECHNICIAN Facility:[facility] Start: 07-11-2025 End: 07-11-2025 ambulatory GOLDY ORELLANA AUTOMOBILE TECHNICIAN - MBA INTERN Facility:[facility] Start: 07-11-2025 End: 07-11-2025 Patient encounter procedure GOLDY ELLIOTTKINS AUTOMOBILE TECHNICIAN - MBA INTERN [facility] Start: 05-19-2025 End: 05-23-2025 ambulatory GOLDY MEDEROSPKINS AUTOMOBILE TECHNICIAN - MBA INTERN Facility:[facility] Start: 05-19-2025 End: 05-23-2025 Outreach Lab GOLDY ELLIOTTKINS AUTOMOBILE TECHNICIAN - MBA INTERN [facility] Start: 01-03-2025 End: 01-03-2025 ambulatory GOLDY ELLIOTTKINS AUTOMOBILE TECHNICIAN - MBA INTERN Facility:[facility] Start: 01-03-2025 End: 01-03-2025 Patient encounter procedure GOLDY Maria ESTEBAN AUTOMOBILE TECHNICIAN - MBA INTERN [facility] Start: 12-30-2024 End: 12-30-2024 ambulatory GOLDY MEDEROSPKINS AUTOMOBILE TECHNICIAN - MBA INTERN Facility:[facility] Start: 12-30-2024 End: 12-30-2024 Patient encounter procedure GOLDY ELLIOTTKINS AUTOMOBILE TECHNICIAN - MBA INTERN [facility] Start: 09-12-2024 End: 09-12-2024 ambulatory GOLDY MEDEROSPKINS AUTOMOBILE TECHNICIAN - MBA INTERN Facility:[facility] Start: 09-12-2024 End: 09-12-2024 Patient encounter procedure DAYRON LAW [facility] Start: 07-05-2024 End: 07-05-2024 ambulatory GOLDY Maria ESTEBAN AUTOMOBILE TECHNICIAN - MBA INTERN Facility:[facility] Start: 07-05-2024 End: 07-05-2024 Patient encounter procedure GOLDY Maria ESTEBAN AUTOMOBILE TECHNICIAN - MBA INTERN [facility] Start: 05-15-2024 End: 05-19-2024 ambulatory JELANI MELVIN AUTOMOBILE TECHNICIAN-CNM Facility:[facility] Start: 05-15-2024 End: 05-19-2024 Encounter for gynecological examination (general) (routine) without abnormal findings JELANI MELVIN AUTOMOBILE TECHNICIAN-CNM Facility:[facility] Start: 05-15-2024 End: 05-19-2024 Outreach Lab JELANI MELVIN AUTOMOBILE TECHNICIAN-CNM [facility] Start: 12-22-2023 End: 12-22-2023 ambulatory [facility] Work Phone: Start: 12-22-2023 End: 12-22-2023 Patient encounter procedure [facility]-Outpatient Breast Imaging Work Phone: Start: 12-08-2023 End: 12-08-2023 ambulatory GOLDY Maria ESTEBAN AUTOMOBILE TECHNICIAN - MBA INTERN Facility:[facility] Start: 06-15-2023 End: 06-19-2023 Outreach Lab GOLDY Maria ESTEBAN AUTOMOBILE TECHNICIAN - MBA INTERN [facility] Start: 09-26-2022 End: 09-26-2022 Patient encounter procedure MICHAEL LEIJA MD [facility] Start: 05-19-2022 End: 05-23-2022 Outreach Lab GOLDY Candace ESTEBAN AUTOMOBILE TECHNICIAN - MBA INTERN [facility] Start: 03-18-2022 End: 03-18-[address] Federico Vincent Work Phone: [facility]-Laboratory, [place] [employer] Start: 02-07-2022 Non-patient / Non-visit Dr. Stefan Vincent Work Phone: [facility] Start: 02-07-2022 End: 02-07-[address] Federico Vincent Work Phone: [facility]-Outpatient Pavilion Ultrasound Start: 02-01-2022 End: 02-01-[address] Federico Vincent Work Phone: [facility] Start: 01-25-2022 End: 01-25-[address] Federico Vincent Work Phone: [facility]Outpatient Pavilion Ultrasound Start: 01-21-2022 End: 01-21-[address] Federico Vincent Work Phone: [facility]-Outpatient Breast Imaging Start: 01-27-2020 End: 05-15-2020 Patient encounter procedure MICHAEL LEIJA [facility] Start: 06-02-2017 Ambulatory FEDERICO Doyle y:YULISSA MAIN Procedures Date Procedure Procedure Detail Performing Clinician Start: 12-22-2023 Screening mammography Start: 02-07-2022 Ultrasonography guid ed biopsy of breast Dr. Federico Vincent Work Phone: Start: 01-25-[address] Federico Vincent Work Phone: Start: 01-21-2022 Screening mammography Candace Vincent Work Phone: Start: 01-29-2021 Colonoscopy GOLDY AVILA AUTOMOBILE TECHNICIAN - MBA INTERN Arthroplasty of knee JELANI STEELECARLA AUTOMOBILE TECHNICIAN-CNM Comment on above: Left knee Arthroscopy of knee GOLDY ORELLANA AUTOMOBILE TECHNICIAN - MBA INTERN Comment on above: TWO ON THE LEFT, ONE ON THE RIGHT Cholecystectomy GOLDY KUO AUTOMOBILE TECHNICIAN - MBA INTERN Decompression of med shady nerve GOLDY ORELLANA AUTOMOBILE TECHNICIAN - MBA INTERN Comment on above: RIGHT ONLY Reduction mammoplasty THALIA ORELLANA AUTOMOBILE TECHNICIAN - MBA INTERN Repair of shoulder GOLDY HUANG AUTOMOBILE TECHNICIAN - MBA INTERN Repair of shoulder JELANI B EDEN AUTOMOBILE TECHNICIAN-CNM Comment on above: Bilateral Immunizations Immunization Date Immunization Notes Care Provider Fa [facility] 02-05-2021 SARS-CoV-2 (COVID-19 ) Ad26 vaccine, recombinant GOLDY ORELLANA AUTOMOBILE TECHNICIAN - MBA INTERN [facility] Comment on above: Result Comment: 2020: TPV50 09-21-2020 influenza, injectabl e, quadrivalent, preservative free; Translations: [Fluarix PF Quadrivalent ] GOLDY ORELLANA AUTOMOBILE TECHNICIAN - MBA INTERN [facility] 12-05-2019 influenza, injectabl e, quadrivalent, preservative free; Translations: [Fluarix PF Quadrivalent ] GOLDY ORELLANA AUTOMOBILE TECHNICIAN - MBA INTERN [facility] 01-24-2019 influenza virus vaccine, unspecified formulation GOLDY ORELLANA AUTOMOBILE TECHNICIAN - MBA INTERN [facility] 09-02-2016 influenza virus vaccine, unspecified formulation GOLDY ORELLANA AUTOMOBILE TECHNICIAN - MBA INTERN [facility] Payers Date Payer Category Payer Self-pay [id number] 2025 Private Health Insurance [id number] 2024 Unknown [id number] 2016 Unknown [id number] 1968 Unknown [id number] 2.16.84 [id number] 1968 Unknown [id number] 2.16.8 [id number] 1968 Unknown [id number] 2.16.8 [id number] 1968 Unknown [id number] 2.16.8 [id number] 1968 Unknown [id number] 2.16. [id number] 1968 Unknown [id number] 2.16. [id number] 1968 Unknown [id number] 2.16.8 [id number] 1968 Unknown [id number] 2.16.8 [id number] 1968 Unknown [id number] 2.16.8 [id number] Unknown [id number] 2.16.8 [id number] Social History Date Type Detail Facility Start: 02-01-2022 End: 02-01-2022 Tobacco smoking status PRIS Unknown if ever smoked [facility] Start: 1970 Sex Assigned At Female [facility] Start: 07-02-2019 End: 07-11-2025 Tobacco smoking status Never smoked tobacco (finding) [facility] Sexual Orientation [facility] Start: 05-15-2019 Sex Female (finding) [facility] Clinical Notes 05-17-2024 to 05-23-2025 Note Date & Type Note Facility 05-23-2025 Note . MICRO - Microbiology PROCEDURE: Urine Culture [*1] SOURCE: Urine, Clean Catch BODY SITE: COLLECTED DATE/TIME: 05/19/2025 16:44 EDT RECEIVED DATE/TIME: 05/20/2025 16:29 EDT START DATE/TIME: 05/20/2025 16:30 EDT FREE TEXT SOURCE: FINAL REPORTS Final Report [] Verified Date/Time/Personnel: 05/23/2025 06:47 EDT >100,000 cfu/ml Escherichia coli PRELIMINARY REPORTS Preliminary Report [] Verified Date/Time/Personnel: 05/21/2025 10:32 EDT >100,000 cfu/ml Escherichia coli DELIA to follow Preliminary Report [] Verified Date/Time/Personnel: 05/20/2025 17:59 EDT Specimen received in lab. SUSCEPTIBILITY RESULTS Escherichia coli Antibiotic DELIA Dilut DELIA Inter Ampicillin >16 Resistant Ampicillin/ >16/8 Resistant Sulbactam Aztreonam <=4 Susceptible Cefazolin 4 Susceptible Cefepime <=2 Susceptible Ceftolozane/ <=2 Susceptible Tazobactam Ciprofloxacin <=0.25 Susceptible Ertapenem <=0.5 Susceptible Gentamicin <=2 Susceptible ID Panel Not Not Applicable Applicable Imipenem <=1 Susceptible Levofloxacin <=0.5 Susceptible Meropenem <=1 Susceptible Minocycline <=4 Susceptible Nitrofurantoin <=32 Susceptible Piperacillin/ <=8 Susceptible Tazobactam Trimethoprim/ <=0.5/9.5 Susceptible Sulfa Performing Locations *1: This test was performed at: [address], [facility] 12-30-2024 Note Exam Date Time Procedure Performing Provider Status 12/30/24 8:12 AM XR Chest 2 Views KRISTINE SEGAL MD; [facility] (Verified) [id number] ORIGINAL HISTORY: Cough COMPARISON: No FINDINGS: There is mild hyperinflation. The lungs are otherwise clear. The cardiac silhouette is within normal size limits. The pulmonary vasculature is unremarkable in appearance. IMPRESSION: Clear lungs. Interpreted by: Kristine Segal MD Preliminary Report By: Kristine Segal MD Electronically signed By Kristine Segal MD Dictated Date: 12/30/2024 8:18:25 AM Prelim Date: 12/30/2024 8:19:09 AM Sign Date: 12/30/2024 8:19:09 AM Ordering Provider: GOLDY ORELLANA [facility]06-28-2024 Note LMP: 2 years ago Abnormal Bleeding: Yes [facility] 06-28-2024 Note LMP: 2 years ago Abnormal Bleeding: Yes [facility] 06-28-2024 Note LMP: 2 years ago Abnormal Bleeding: Yes [facility] 06-28-2024 Note LMP: 2 years ago Abnormal Bleeding: Yes [facility] 06-28-2024 Note LMP: 2 years ago Abnormal Bleeding: Yes [facility] 06-28-2024 Note LMP: 2 years ago Abnormal Bleeding: Yes [facility] 06-28-2024 Note LMP: 2 years ago Abnormal Bleeding: Yes [facility] 06-28-2024 Note LMP: 2 years ago Abnormal Bleeding: Yes [facility] Evaluation + Plan note Future Appointments Appointment Date:05/27/2022 08:20:00 AM Scheduled Provider:GOLDY ORELLANA APRN, CNP Location:[facility] Appointment Type:PC OV Follow Up Future Scheduled Tests Laboratory* Complete Blood Count 07/12/21 [facility] Evaluation + Plan note Future Appointments Appointment Date:11/24/2022 08:30:00 AM Scheduled Provider: Location:[facility] Appointment Type:PC Nurse Lab Appointment Date:12/02/2022 08:20:00 AM Scheduled Provider:GOLDY ORELLANA APRN, CNP Location:[facility] Appointment Type:PC OV Follow Up Future Scheduled Tests Laboratory* A1C Hemoglobin 11/27/22 * Vitamin D Level 11/27/22 [facility] Evaluation + Plan note Future Appointments Appointment Date:12/15/2023 07:40:00 AM Scheduled Provider:GOLDY ORELLANA APRN, CNP Location:[facility] Appointment Type:PC OV Follow Up Future Scheduled Tests Laboratory* A1C Hemoglobin 12/16/23 * Lipid Profile 12/16/23 * Vitamin D Level 12/16/23 * Complete Metabolic Panel 12/16/23 [facility] Evaluation + Plan note Future Appointments Appointment Date:06/17/2024 09:15:00 AM Scheduled Provider:DEACON AYOUB MD Location: [facility] Appointment Type: OV Appointment Date:07/12/2024 07:40:00 AM Scheduled Provider:GOLDY ORELLANA APRN - [place] Location:[facility] Appointment Type: OV Follow Up Future Scheduled Tests Laboratory* A1C Hemoglobin 06/14/24 * Complete Blood Count 06/14/24 * Vitamin D Level 06/14/24 * Complete Metabolic Panel 06/14/24 [facility] Evaluation + Plan note Future Appointments Appointment Date:07/12/2024 07:40:00 AM Scheduled Provider:GOLDY ORELLANA APRN, CNP Location:[facility] Appointment Type: OV Follow Up [facility] Evaluation + Plan note Future Appointments Appointment Date:01/10/2025 07:40:00 AM Scheduled Provider:GOLDY ORELLANA APRN - DOROTHEA Location:[facility] Appointment Type:PC OV Future Scheduled Tests Laboratory* A1C Hemoglobin 01/12/25 * Lipid Profile 01/12/25 * Vitamin D Level 01/12/25 * Complete Metabolic Panel 01/12/25 [facility] Evaluation + Plan note Future Appointments Appointment Date:01/10/2025 07:40:00 AM Scheduled Provider:GOLDY ORELLANA APRN - [place]A Location:[facility] Appointment Type:PC OV [facility] Evaluation + Plan note Future Appointments Appointment Date:07/11/2025 08:00:00 AM Scheduled Provider:GOLDY ORELLANA APRN, CNP Location:[facility] Appointment Type:PC OV Future Scheduled Tests Laboratory* A1C Hemoglobin 07/10/25 * Lipid Profile 07/10/25 * Vitamin D Level 07/10/25 * Complete Metabolic Panel 07/10/25 [facility] Evaluation + Plan note Future Appointments Appointment Date:01/13/2026 08:00:00 AM Scheduled Provider: Location:[facility] Appointment Type:PC Nurse Lab Appointment Date:01/16/2026 07:00:00 AM Scheduled Provider:GOLDY ORELLANA APRN, CNP Location:[facility] Appointment Type:PC OV Follow Up Future Scheduled Tests Laboratory* A1C Hemoglobin 01/11/26 * Lipid Profile 01/11/26 * Vitamin D Level 01/11/26 * Complete Metabolic Panel 01/11/26 Radiology* MA Mammo Screening Bilateral w/ Jorge Luis 07/11/25 [facility] Evaluation note* Diagnosis Onset Date Resolution Status Abnormal mammogram of left breast acute Abnormal mammogram of left breast acute [facility] Work Phone: Evaluation noteNo assessment information available [facility] Work Phone: Hospital course Narrative No data available for this section [facility] Hospital Discharge instructions No data available for this section [facility] Progress note No data available for this section [facility] Summary Purpose Family History No Family History Records Found Relationship Condition Age at Onset Recorded Date/T oralia grandfather Malignant neoplasm of breast Unknown father Diabetes mellitus Unknown Cardiac disease Unknown Cerebrovascular accident (CVA) Unknown Advance Directives No Advanced Directives Records FoundNo Advanced Directives Records FoundNo Advanced Directives Records FoundNo Advanced Directives Records FoundNo Advanced Directives Records Found Chief Complaint and Reason for Visit Chief Complaint SCREENING LT BREAST ABN MAMM Birads 4 Left Breast BX ABN BREAST IMAGING ABN BREAST IMAGING Reason for Visit Abnormal mammogram o f left breast Abnormal mammogram of left breast Chief Complaint SCREENING Additional Source Comments INFORMATION SOURCE (unrecogn ized section and content) DATE CREATED AUTHOR 05/16/2018 [facility] DATE CREATED AUTHOR AUTHOR'S ORGANIZ ATION 06/10/2020 [facility] DATE CREATED AUTHOR AUTHOR'S ORGANIZ ATION 07/06/2024 [facility] ([place]) DATE CREATED AUTHOR AUTHOR'S ORGANIZ ATION 07/13/2025 [facility] DATE CREATED AUTHOR AUTHOR'S ORGANIZ ATION 08/09/2025 [facility] Goals (unrecognized section and content) Goals may be documented in a n alternate section No data available for this section No data available for this section No data available for this sectionGoals may be documented in an alternate section No data available for this section No data available for this section No data available for this section No data available for this section No data available for this section No data available for this section No data available for this section Care Team (unrecognized sect ion and content) Care Team Personnel Name: FEDERICO VINCENT DO Position: P4 Physician - Primary Care Med Service: Active Provider Member Role: Primary Care Physician Address: Address: [address] [place] [address] Care Team Related Persons Name: GOLDY METZ Care Team Personnel Name: GOLDY ORELLANA AUTOMOBILE TECHNICIAN - MBA INTERN Position: P4 Advanced Practice Nurse Member Role: Primary Care Physician Address: Address: [address] [place] [address] Care Team Related Persons Name: GOLDY METZ Patient Care team informatio n (unrecognized section and content) Team Status: Active Member Role Status Dates Dr. Federico Vincent DO Family Provider Active Goldy Orellana EMERGENCY ROOM TECHNICIAN, EMERGENCY ROOM TECHNICIAN-C Primary Care Provider Active Team Status: Inactive Member Role Status Dates Goldy Orellana EMERGENCY ROOM TECHNICIAN, EMERGENCY ROOM TECHNICIAN-C Primary Care Provider, Attending Provider, Referring Provider Active FOR RECORDS PERTAINING TO PATIENTS WHO ARE [...] BE BASED ON THE PRIMARY CLINICAL RECORDS. [facility] [employer] [facility]. provides no warranty or guarantee of the accuracy or completeness of information in this document.
--- OUTSIDE RECORDS SUMMARY | 2025-08-14 07:43 | XMS RPT_ITS | CCD ---
Author Organization [facility] CliniSytn Care Team Providers Care [employer]ed [employer] Pinner Name Role Phone FEDERICO CHAVEZ Unavailable Unavailable FEDERICO CHAVEZ Unavailable Unavailable FEDERICO CHAVEZ Unavailable Unavailable MICHAEL LEIJA Admitting Unavailable MICHAEL LEIJA Attending Unavailable MICHAEL LEIJA Primary Care Unavailable MELISA COLLAZO DO Consulting Unavailable PROVIDER, UNKNOWN Consulting Unavailable Dr. Federico Vincent Primary Care Provider Dr. John Giles Attending Provider Dr. Raissa Guzman Referring Provider Dr. John Giles Other Provider FEDERICO VINCENT DO Primary Care Physician ESTEBAN MANAGER ANALYTICAL - GOLDY PIEDRA [facility] Phys [facility] ESTEBAN MANAGER ANALYTICAL - FUNERAL PLANNER, GOLDY Maria Attending U navailable ESTEBAN MANAGER ANALYTICAL - FUNERAL PLANNER, GOLDY Maria Primary Care U navailable BEITLER MANAGER ANALYTICAL-CNM, JELANI Peter Attending Unav ailable ESTEBAN MANAGER ANALYTICAL - FUNERAL PLANNER, GOLDY Maria Primary Care U navailable ESTEBAN MANAGER ANALYTICAL - FUNERAL PLANNER, GOLDY Maria Attending U navailable ESTEBAN MANAGER ANALYTICAL - FUNERAL PLANNER, GOLDY Maria Primary Care U navailable ESTEBAN MANAGER ANALYTICAL - FUNERAL PLANNER, GOLDY Maria Attending U navailable ESTEBAN MANAGER ANALYTICAL - FUNERAL PLANNER, GOLDY Maria Primary Care U navailable ESTEBAN MANAGER ANALYTICAL - FUNERAL PLANNER, GOLDY Maria Attending U navailable ESTEBAN MANAGER ANALYTICAL - FUNERAL PLANNER, GOLDY Maria Primary Care U navailable ESTEBAN MANAGER ANALYTICAL - FUNERAL PLANNER, GOLDY Maria Attending U navailable ESTEBAN MANAGER ANALYTICAL - FUNERAL PLANNER, GOLDY Maria Primary Care U navailable ESTEBAN MANAGER ANALYTICAL - FUNERAL PLANNER, GOLDY Maria Attending U toyin Dang CNP, GOLDY Maria Primary Care U toyin Dang CNP, GOLDY Maria Primary Care U MD DAYRON Hou Attending [facility] Esteban MODULAR SET CREW MEMBER, Goldy Quiroga Referring Melita Orellana MODULAR SET CREW MEMBER, Goldy Quiroga Attending Melita Orellana MODULAR SET CREW MEMBER, Goldy Quiroga Primary Care Unav ailable Medications Current Medications Medication Drug Class(es) Dates Sig (Normalized) Sig (Original) cholecalciferol 1.25 mg oral capsule (1 source) Vitamin D Start: 06-15-2023 End: 12-12-2023 cholecalciferol 1250 mcg (50,000 intl units) oral capsule Dose : 50,000 International_Unit = 1 cap(s), Oral, qmonth, # 4 cap(s), 1 Refill(s), [id number] Vitamin D deficiency, 162, cm, [...] 0 Refill(s), 05/24/25 3:48:00 PM EDT, Pharmacy: [facility]/pharmacy #[id number], UTI symptoms, 160, cm, 05/19/25 14:58:00 [...] weekly, # 128 gram(s), 3 Refill(s), [facility], 162, cm, 07/16/24 13:24:00 EDT, Height, kg, 07/16/24 13:24:00 EDT, Dosing Weight Start Date: 07/16/24 Status: Ordered Estradiol Patch 0.025 mg/24 hours weekly transdermal film, extended release (2 sources) Start: 05-15-2024 Estradiol Patch 0.025 mg/24 hours weekly transdermal film, extended release 1 patch(es), Topical, qWeek, # 4 patch(es), 0 Refill(s), Pharmacy: [facility]/pharmacy #[id number], 161.7, cm, 05/15/24 9:32:00 EDT, Height, kg, 05/15/24 9:32:00 EDT, Dosing Weight Start Date: 05/15/24 Status: Ordered estrogens, conjugated (alf) 0.625 mg/ml vaginal cream (3 sources) Estrogen Start: 05-15-2024 Premarin 0.625 mg/g vaginal cream with applicator 0.5 gram(s), Vaginal, qPM, intravaginal every night x 2 weeks, then reduce to 2x per week x 2weeks, # 15 gram(s), 0 Refill(s), Pharmacy: [facility]/pharmacy #[id number], 161.7, cm, 05/15/24 9:32:00 EDT, Height, [...] qDay, # 90 tab(s), 1 Refill(s), Pharmacy: [facility]/pharmacy #[id number], Arthritis of knee, 162.3, cm, 05/27/22 8:28:00 EDT, Height, kg, 05/27/22 8:23:00 EDT, Dosing Weight Start Date: 05/27/22 Stop Date: 12/23/22 Status: Ordered [facility] Medication (1 source) Start: 06-15-2023 [facility] Medicatio n Compounded arthur, 0 Refill(s), 105.5 [...] qDay, # 90 tab(s), 1 Refill(s), Pharmacy: [facility]/pharmacy #[id number], GERD (gastroesophageal reflux disease), 162, cm, 07/12/24 7:38:00 EDT, Height, kg, 07/12/24 7:38:00 EDT, Dosing Weight Start Date: 07/12/24 Status: Ordered Start: 12-15-2023 pantoprazole 4 0 mg oral enteric coated tablet Dose : 40 mg = 1 tab(s), Oral, qDay, # 90 tab(s), 1 Refill(s), Pharmacy: [facility]/pharmacy #[id number], GERD (gastroesophageal reflux disease), 162, cm, 12/15/23 7:56:00 EST, Height, kg, 12/15/23 7:56:00 EST, Dosing Weight Start Date: 12/15/23 Status: Ordered Start: 06-15-2023 pantoprazole 4 0 mg oral enteric coated tablet Dose : 40 mg = 1 tab(s), Oral, qDay, # 90 tab(s), 1 Refill(s), Pharmacy: [facility]/pharmacy #[id number], GERD (gastroesophageal reflux disease), 162, cm, 06/15/23 6:59:00 EDT, Height, kg, 06/15/23 6:59:00 EDT, Dosing Weight Start Date: 06/15/23 Status: Ordered Start: 02-01-2022 Pantoprazole A ctive TAB PO February 01, 2022 2:27pm Start: 11-26-2021 End: 12-23-2022 pantoprazole 40 mg oral ente samuel coated tablet Dose : 40 mg = 1 tab(s), Oral, qDay, # 90 tab(s), 1 Refill(s), Pharmacy: [facility]/pharmacy #[id number], GERD (gastroesophageal reflux disease), 162.3, cm, 05/27/22 8:28:00 EDT, Height, kg, 05/27/22 8:23:00 EDT, Dosing Weight Start Date: 05/27/22 Stop Date: 12/23/22 Status: Ordered PEG-3350 with Electrolytes (Eqv-GoLYTELY) oral powder for reconstitution (2 sources) Start: 07-12-2024 PEG-3350 with Electrolytes (Eqv-GoLYTELY) oral powder for reconstitution Dose = 240 mL, Oral, q10min, # 1 EA, 0 Refill(s), Pharmacy: [facility]/pharmacy #[id number], 162, cm, 07/12/24 7:38:00 EDT, Height, kg, 07/12/24 7:38:00 EDT, Dosing Weight Start Date: 07/12/24 Status: Ordered Quantity: 1.0 Unit: EA Repeat number: 1 Start: 07-12-2024 PEG-3350 with Electrolytes (Eqv-GoLYTELY) oral powder for reconstitution Dose = 240 mL, Oral, q10min, # 1 EA, 0 Refill(s), [id number], 162, cm, 07/12/24 7:38:00 EDT, Height, kg, 07/12/24 7:38:00 EDT, Dosing Weight Start Date: 07/12/24 Status: Ordered phenazopyridine hydrochloride 100 mg oral tablet (1 source) Start: 05-19-2025 End: 05-26-2025 Pyridium 100 mg oral tablet Dose : 100 mg = 1 tab(s), Oral, TID, X 7 day(s), # 21 tab(s), 0 Refill(s), 05/26/25 3:49:00 PM EDT, [id number], UTI symptoms, 160, cm, 05/19/25 14:58:00 EDT, Height, kg, 05/19/25 14:58:00 EDT, Dosing Weight Start Date: 05/19/25 Stop Date: 05/26/25 Status: Ordered Quantity: 21.0 Unit: tab(s) Repeat number: 1 Indications: Unspecified symptoms and signs involving the genitourinary system; polyethylene glycol 3350 03990 mg powder for oral solution (3 sources) [...] qDay, # 60 cap(s), 0 Refill(s), Pharmacy: [facility]/pharmacy #[id number], 161.7, cm, 05/15/24 9:32:00 EDT, Height, [...] arm, # 13.5 mL, 1 Refill(s), Pharmacy: [facility]/pharmacy #[id number], 162, cm, 12/15/23 7:56:00 EST, Height, kg, 12/15/23 7:56:00 EST, Dosing Weight Start Date: 12/15/23 Stop Date: 08/23/24 Status: Ordered linaclotide 0.145 mg oral capsule (1 source) Guanylate Cyclase-C Agonist Start: 07-12-2024 End: 09-10-2024 Linzess 145 mcg oral capsule Dose : 145 mcg = 1 cap(s), Oral, qDayAC, 30 minutes before breakfast. Do NOT crush/chew, # 30 cap(s), 1 Refill(s), Pharmacy: [facility]/pharmacy #[id number], Chronic constipation, 162, cm, 07/12/24 7:38:00 [...] Estimated Glomerular Filtration Rate 88 ml/min/1.73sqm Normal [facility] Comment on above: Result Comment: Stages of [...] 1C, CMP, VIDH, GFR, LIPID #### [address] [address] A1Con 07-11-2025 Glucose [Mass/Vol] 105 mg/dL Normal [facility] Comment on above: Result Comment: Vika mated Average Glucose calculated by equation ((28.7xA1C)-46.7) Estimated average glucose (eAG) is a calculated value from Hemoglobin A1C and is hvac sales representative of the average blood glucose level in the last 2-3 month period. Normal range: less than 114 mg/dL Performed By: #### A 1C, CMP, VIDH, GFR, LIPID ####[address] [address] HbA1c (Bld) [Mass fraction] 5.3 % Normal 4.3-6.4 [facility] Comment on above: Performed By: #### A 1C, CMP, VIDH, GFR, LIPID ####[address] [address] CMPon 07-11-2025 Albumin Level 3.8 G/dL Normal 3.5-5.0 [facility] Comment on above: Performed By: #### A 1C, CMP, VIDH, GFR, LIPID #### [address] [address] Albumin/Globulin [Mass ratio] 1.1 {ratio} Normal 1.1-2.5 [facility] Comment on above: Performed By: #### A 1C, CMP, VIDH, GFR, LIPID #### [address] [address] ALP [Catalytic activity/Vol] 85 U/L Normal 40-135 [facility] Comment on above: Performed By: #### A 1C, CMP, VIDH, GFR, LIPID #### [address] [address] ALT [Catalytic activity/Vol] 21 U/L Normal 14-59 [facility] Comment on above: Performed By: #### A 1C, CMP, VIDH, GFR, LIPID #### [address] [address] AST [Catalytic activity/Vol] 19 U/L Normal 10-40 [facility] Comment on above: Performed By: #### A 1C, CMP, VIDH, GFR, LIPID #### [address] [address] Bili Total 0.5 mg/dL Normal 0.2-1.0 [facility] Comment on above: Result Comment: Use of this assay is not recommended for patients undergoing treatment with eltrombopag due to the potential for falsely elevated results. Performed By: #### A 1C, CMP, VIDH, GFR, LIPID #### [address] [address] BUN/Creatinine Ratio 16 ratio Normal 7-27 [facility] Comment on above: Performed By: #### A 1C, CMP, VIDH, GFR, LIPID #### [address] [address] Calcium [Mass/Vol] 9.3 mg/dL Normal 8.4-10.2 [facility] Comment on above: Performed By: #### A 1C, CMP, VIDH, GFR, LIPID #### [address] [address] Chloride [Moles/Vol] 103 mmol/L Normal 98-107 [facility] Comment on above: Performed By: #### A 1C, CMP, VIDH, GFR, LIPID #### [address] [address] CO2 [Moles/Vol] 27 mmol/L Normal 22-29 [facility] Comment on above: Performed By: #### A 1C, CMP, VIDH, GFR, LIPID #### [address] [address] Creatinine [Mass/Vol] 0.79 mg/dL Normal 0.51-0.95 [facility] Comment on above: Performed By: #### A 1C, CMP, VIDH, GFR, LIPID #### [address] [address] Electrolyte Balance 8.0 mEq/L Normal 4.0-15.0 [facility] Comment on above: Performed By: #### A 1C, CMP, VIDH, GFR, LIPID #### [address] [address] Globulin 3.5 G/dL Normal 2.7-4.4 [facility] Comment on above: Performed By: #### A 1C, CMP, VIDH, GFR, LIPID #### [address] [address] Glucose [Mass/Vol] 77 mg/dL Normal 70-105 [facility] Comment on above: Performed By: #### A 1C, CMP, VIDH, GFR, LIPID #### [address] [address] Potassium [Moles/Vol] 4.0 mmol/L Normal 3.5-5.1 [facility] Comment on above: Performed By: #### A 1C, CMP, VIDH, GFR, LIPID #### [address] [address] Sodium [Moles/Vol] 138 mmol/L Normal 136-145 [facility] Comment on above: Performed By: #### A 1C, CMP, VIDH, GFR, LIPID #### [address] [address] Total Protein 7.3 G/dL Normal 6.4-8.2 [facility] Comment on above: Performed By: #### A 1C, CMP, VIDH, GFR, LIPID #### [address] [address] Urea nitrogen [Mass/Vol] 13 mg/dL Normal 7-18 [facility] Comment on above: Performed By: #### A 1C, CMP, VIDH, GFR, LIPID #### [address] [address] LABORATORYOrdered By: SYSTEM SYSTEM on 07-11-2025 25-hydroxyvitamin [...] calculated value from Hemoglobin A1C and is hvac sales representative of the average blood glucose [...] 07-11-2025 Cholesterol [Mass/Vol] 204 mg/dL High 0-200 [facility] Comment on above: Result Comment: Chol esterol Reference Interval: Less than 200 Desirable 200-239 Borderline high risk 240 and above High risk Performed By: #### A 1C, CMP, VIDH, GFR, LIPID ####[facility] [place], [place] [address] Cholesterol in HDL [Mass/Vol] 69 mg/dL High 40-60 [facility] Comment on above: Performed By: #### A 1C, CMP, VIDH, GFR, LIPID ####[facility] [place], [place] [address] Cholesterol in LDL [Mass/Vol] 119 mg/dL Normal 0-130 [facility] Comment on above: Performed By: #### A 1C, CMP, VIDH, GFR, LIPID ####[facility] [place], [place] [address] Triglyceride [Mass/Vol] 82 mg/dL Normal 0-150 [facility] Comment on above: Result Comment: Trig lyceride Reference Interval: Less than 150 Normal 150-199 Borderline high risk 200-499 High risk 500 or higher Very high risk Performed By: #### A 1C, CMP, VIDH, GFR, LIPID ####[place] [id number] [place], [place] [address] VIDHon 07-11-2025 Vit. D 25-Hydroxy 67.8 ng/mL Normal [facility] Comment on above: Result Comment: Inte rpretive Values Based on Total 25(OH) Vitamin D: Deficient <20 ng/mL Insufficient 20 - <30 ng/mL Sufficient 30-100 ng/mL Performed By: #### A 1C, CMP, VIDH, GFR, LIPID #### [place] [address] [place], [place] [address] AMIKACIN:SUSC:PT:ISOLATE:ORD QN:MICon 05-19-2025 Amikacin DELIA [Susc] >100,000 cfu/ml Escherichia coli [facility] Amikacin DELIA [Susc]on 2024 Escherichia coli Escherichia coli [facility] .GFRon 01-03-2025 Estimated Glomerular Filtration Rate 101 ml/min/1.73sqm Normal [facility] Comment on above: Result Comment: Stages of [...] 1C, LIPID, CMP, GFR, VIDH #### [address] [address] A1Con 01-03-2025 Glucose [Mass/Vol] 105 mg/dL Normal [facility] Comment on above: Result Comment: Vika mated Average Glucose calculated by equation ((28.7xA1C)-46.7) Estimated average glucose (eAG) is a calculated value from Hemoglobin A1C and is hvac sales representative of the average blood glucose level in the last 2-3 month period. Normal range: less than 114 mg/dL Performed By: #### A 1C, LIPID, CMP, GFR, VIDH #### [address] [address] HbA1c (Bld) [Mass fraction] 5.3 % Normal 4.3-6.4 [facility] Comment on above: Performed By: #### A 1C, LIPID, CMP, GFR, VIDH #### [address] [address] CMPon 01-03-2025 Albumin Level 4.0 G/dL Normal 3.5-5.0 [facility] Comment on above: Performed By: #### A 1C, LIPID, CMP, GFR, VIDH #### [address] [address] Albumin/Globulin [Mass ratio] 1.1 {ratio} Normal 1.1-2.5 [facility] Comment on above: Performed By: #### A 1C, LIPID, CMP, GFR, VIDH #### [address] [address] ALP [Catalytic activity/Vol] 85 U/L Normal 40-135 [facility] Comment on above: Performed By: #### A 1C, LIPID, CMP, GFR, VIDH #### [address] [address] ALT [Catalytic activity/Vol] 21 U/L Normal 14-59 [facility] Comment on above: Performed By: #### A 1C, LIPID, CMP, GFR, VIDH #### [address] [address] AST [Catalytic activity/Vol] 12 U/L Normal 10-40 [facility] Comment on above: Performed By: #### A 1C, LIPID, CMP, GFR, VIDH #### [address] [address] Bili Total 0.5 mg/dL Normal 0.2-1.0 [facility] Comment on above: Result Comment: Use of this assay is not recommended for patients undergoing treatment with eltrombopag due to the potential for falsely elevated results. Performed By: #### A 1C, LIPID, CMP, GFR, VIDH #### [address] [address] BUN/Creatinine Ratio 17 ratio Normal 7-27 [facility] Comment on above: Performed By: #### A 1C, LIPID, CMP, GFR, VIDH #### [address] [address] Calcium [Mass/Vol] 9.5 mg/dL Normal 8.4-10.2 [facility] Comment on above: Performed By: #### A 1C, LIPID, CMP, GFR, VIDH #### [address] [address] Chloride [Moles/Vol] 105 mmol/L Normal 98-107 [facility] Comment on above: Performed By: #### A 1C, LIPID, CMP, GFR, VIDH #### [address] [address] CO2 [Moles/Vol] 27 mmol/L Normal 22-29 [facility] Comment on above: Performed By: #### A 1C, LIPID, CMP, GFR, VIDH #### [address] [address] Creatinine [Mass/Vol] 0.70 mg/dL Normal 0.55-1.02 [facility] Comment on above: Result Comment: Test ing performed on [employer] Dimension EXL analyzer using a modified kinetic Leti technique. Performed By: #### A 1C, LIPID, CMP, GFR, VIDH #### [place] [address] Electrolyte Balance 9.0 mEq/L Normal 4.0-15.0 [facility] Comment on above: Performed By: #### A 1C, LIPID, CMP, GFR, VIDH #### [place] [address] Globulin 3.8 G/dL Normal 1.5-3.8 [facility] Comment on above: Performed By: #### A 1C, LIPID, CMP, GFR, VIDH #### [place] [address] Glucose [Mass/Vol] 81 mg/dL Normal 70-105 [facility] Comment on above: Performed By: #### A 1C, LIPID, CMP, GFR, VIDH #### [address] [address] Potassium [Moles/Vol] 4.4 mmol/L Normal 3.5-5.1 [facility] Comment on above: Performed By: #### A 1C, LIPID, CMP, GFR, VIDH #### [place] [address] Sodium [Moles/Vol] 141 mmol/L Normal 136-145 [facility] Comment on above: Performed By: #### A 1C, LIPID, CMP, GFR, VIDH #### [place] [id number] Total Protein 7.8 G/dL Normal 6.4-8.2 [facility] Comment on above: Performed By: #### A 1C, LIPID, CMP, GFR, VIDH #### [place] [address] [place], [place] [address] Urea nitrogen [Mass/Vol] 12 mg/dL Normal 7-18 [facility] Comment on above: Performed By: #### A 1C, LIPID, CMP, GFR, VIDH #### [place] [address] [place], [place] [address] LABORATORYOrdered By: SYSTEM SYSTEM on 01-03-2025 25-hydroxyvitamin [...] calculated value from Hemoglobin A1C and is hvac sales representative of the average blood glucose [...] 01-03-2025 Cholesterol [Mass/Vol] 163 mg/dL Normal 0-200 [facility] Comment on above: Result Comment: Chol esterol Reference Interval: Less than 200 Desirable 200-239 Borderline high risk 240 and above High risk Performed By: #### A 1C, LIPID, CMP, GFR, VIDH #### [address] [address] Cholesterol in HDL [Mass/Vol] 56 mg/dL Normal 40-60 [facility] Comment on above: Performed By: #### A 1C, LIPID, CMP, GFR, VIDH #### [address] [address] Cholesterol in LDL [Mass/Vol] 91 mg/dL Normal 0-130 [facility] Comment on above: Performed By: #### A 1C, LIPID, CMP, GFR, VIDH #### [address] [address] Triglyceride [Mass/Vol] 81 mg/dL Normal 0-150 [facility] Comment on above: Result Comment: Trig lyceride Reference Interval: Less than 150 Normal 150-199 Borderline high risk 200-499 High risk 500 or higher Very high risk Performed By: #### A 1C, LIPID, CMP, GFR, VIDH #### [address] [address] VIDHon 01-03-2025 Vit. D 25-Hydroxy 69.9 ng/mL Normal [facility] Comment on above: Result Comment: Inte rpretive Values Based on Total 25(OH) Vitamin D: Deficient <20 ng/mL Insufficient 20 - <30 ng/mL Sufficient 30-100 ng/mL Performed By: #### A 1C, LIPID, CMP, GFR, VIDH #### [place] [address] [place], [place] [address] XR CHEST 2 VIEWSon XR CHEST 2 [...] 12/30/2024 8:19:09 AM Ordering Provider: GOLDY Aggarwal [facility] MRI SHOULDER W/O CONTRAST LE [facility] 09-13-2024 MRI SHOULDER W/O CONTRAST LEFT ORIGINAL EXAMINATION: MRI OF THE LEFT SHOULDER WITHOUT LEDNNOOQ57/24/2024 1:47 pm MRI of the left shoulder [...] 09/13/2024 1:07:05 PM Ordering Provider: DAYRON Aggarwal [facility] .Auto Diffon 07-05-2024 Basophil, Absolute 0.1 10 3/mcL Normal 0.0-0.2 [facility] ([place]) Comment on above: Performed By: #### A DIFF, ANEU, A1C, VIDH, CMP, GFR, CBC #### [place] [address] [place], [place] [address] Basophils/100 WBC (Bld) 0.7 % Normal 0.0-2.5 [facility] ([place]) Comment on above: Performed By: #### A DIFF, ANEU, A1C, VIDH, CMP, GFR, CBC #### [address] [address] Eosinophil, Absolute 0.2 10 3/mcL Normal 0.0-0.4 [facility] ([place]) Comment on above: Performed By: #### A DIFF, ANEU, A1C, VIDH, CMP, GFR, CBC #### [address] [address] Eosinophils/100 WBC (Bld) 1.7 % Normal 0.0-7.0 [facility] ([place]) Comment on above: Performed By: #### A DIFF, ANEU, A1C, VIDH, CMP, GFR, CBC #### [address] [address] Lymphocyte, Absolute 2.5 10 3/mcL Normal 0.8-3.9 [facility] ([place]) Comment on above: Performed By: #### A DIFF, ANEU, A1C, VIDH, CMP, GFR, CBC #### [address] [address] Lymphocytes/100 WBC (Bld) 28.0 % Normal 10.0-50.0 [facility] ([place]) Comment on above: Performed By: #### A DIFF, ANEU, A1C, VIDH, CMP, GFR, CBC #### [address] [address] Monocyte, Absolute 0.7 10 3/mcL Normal 0.2-1.0 [facility] ([place]) Comment on above: Performed By: #### A DIFF, ANEU, A1C, VIDH, CMP, GFR, CBC #### [address] [address] Monocytes/100 WBC (Bld) 7.5 % Normal 1.7-13.0 [facility] ([place]) Comment on above: Performed By: #### A DIFF, ANEU, A1C, VIDH, CMP, GFR, CBC #### [address] [address] Neutrophils/100 WBC (Bld) 62.1 % Normal 37.0-80.0 [facility] ([place]) Comment on above: Performed By: #### A DIFF, ANEU, A1C, VIDH, CMP, GFR, CBC #### [address] [address] .GFRon 07-05-2024 GFR Non- 67 ml/min/1.73sqm Normal [facility] ([place]) Comment on above: Result Comment: GFR Population [...] A1C, VIDH, CMP, GFR, CBC #### [address] [address] GFR 81 ml/min/1.73sqm Normal [facility] ([place]) Comment on above: Result Comment: GFR Population [...] A1C, VIDH, CMP, GFR, CBC #### [address] [address] .NEUABSon 07-05-2024 Neutrophil, Absolute 5.5 10 3/mcL Normal 2.9-6.2 [facility] ([place]) Comment on above: Performed By: #### A DIFF, ANEU, A1C, VIDH, CMP, GFR, CBC #### [address] [address] A1Con 07-05-2024 Glucose [Mass/Vol] 88 mg/dL Normal [facility] ([place]) Comment on above: Result Comment: Vika mated Average Glucose calculated by equation ((28.7xA1C)-46.7) Estimated average glucose (eAG) is a calculated value from Hemoglobin A1C and is hvac sales representative of the average blood glucose level in the last 2-3 month period. Normal range: less than 114 mg/dL Performed By: #### A DIFF, ANEU, A1C, VIDH, CMP, GFR, CBC #### [address] [address] HbA1c (Bld) [Mass fraction] 4.7 % Normal 4.3-6.4 [facility] ([place]) Comment on above: Performed By: #### A DIFF, ANEU, A1C, VIDH, CMP, GFR, CBC #### [address] [address] CBCon 07-05-2024 Erythrocyte distribution width (RBC) [Ratio] 13.5 % Normal 11.5-14.5 [facility] ([place]) Comment on above: Performed By: #### A DIFF, ANEU, A1C, VIDH, CMP, GFR, CBC #### [address] [address] Hematocrit (Bld) [Volume fraction] 41.4 % Normal 37.0-47.0 [facility] ([place]) Comment on above: Performed By: #### A DIFF, ANEU, A1C, VIDH, CMP, GFR, CBC #### [address] [address] Hgb 14.1 G/dL Normal 12.0-16.0 [facility] ([place]) Comment on above: Performed By: #### A DIFF, ANEU, A1C, VIDH, CMP, GFR, CBC #### [address] [address] MCH (RBC) [Entitic mass] 28.7 pg Normal 27.0-31.2 [facility] [place] ([place]) Comment on above: Performed By: #### A DIFF, ANEU, A1C, VIDH, CMP, GFR, CBC #### [place] [address] MCHC 34.0 G/dL Normal 33.0-37.0 [facility] [place] ([place]) Comment on above: Performed By: #### A DIFF, ANEU, A1C, VIDH, CMP, GFR, CBC #### [place] [address] MCV (RBC) [Entitic vol] 84.4 fL Normal 80.0-94.0 [facility] [place] ([place]) Comment on above: Performed By: #### A DIFF, ANEU, A1C, VIDH, CMP, GFR, CBC #### [address] [address] [address] Platelet [id number] 10 3/mcL Normal 130-400 [facility] ([place]) Comment on above: Performed By: #### A DIFF, ANEU, A1C, VIDH, CMP, GFR, CBC #### [address] [address] Platelet mean volume (Bld) [Entitic vol] 10.4 fL Normal 7.4-10.4 [facility] ([place]) Comment on above: Performed By: #### A DIFF, ANEU, A1C, VIDH, CMP, GFR, CBC #### [address] [address] RBC 4.90 10 6/mcL Normal 4.20-5.40 [facility] ([place]) Comment on above: Performed By: #### A DIFF, ANEU, A1C, VIDH, CMP, GFR, CBC #### [address] [address] WBC 8.8 10 3/mcL Normal 4.6-10.8 [facility] ([place]) Comment on above: Performed By: #### A DIFF, ANEU, A1C, VIDH, CMP, GFR, CBC #### [address] [address] CMPon 07-05-2024 Albumin Level 3.9 G/dL Normal 3.5-5.0 [facility] ([place]) Comment on above: Performed By: #### A DIFF, ANEU, A1C, VIDH, CMP, GFR, CBC #### [address] [address] Albumin/Globulin [Mass ratio] 1.0 {ratio} Low 1.1-2.5 [facility] ([place]) Comment on above: Performed By: #### A DIFF, ANEU, A1C, VIDH, CMP, GFR, CBC #### [address] [address] ALP [Catalytic activity/Vol] 101 U/L Normal 40-135 [facility] ([place]) Comment on above: Performed By: #### A DIFF, ANEU, A1C, VIDH, CMP, GFR, CBC #### [address] [address] ALT [Catalytic activity/Vol] 18 U/L Normal 14-59 [facility] ([place]) Comment on above: Performed By: #### A DIFF, ANEU, A1C, VIDH, CMP, GFR, CBC #### [address] [address] AST [Catalytic activity/Vol] 9 U/L Low 10-40 [facility] ([place]) Comment on above: Performed By: #### A DIFF, ANEU, A1C, VIDH, CMP, GFR, CBC #### [address] [address] Bili Total 0.4 mg/dL Normal 0.2-1.0 [facility] ([place]) Comment on above: Result Comment: Use of this assay is not recommended for patients undergoing treatment with eltrombopag due to the potential for falsely elevated results. Performed By: #### A DIFF, ANEU, A1C, VIDH, CMP, GFR, CBC #### [address] [address] BUN/Creatinine Ratio 15 ratio Normal 7-27 [facility] ([place]) Comment on above: Performed By: #### A DIFF, ANEU, A1C, VIDH, CMP, GFR, CBC #### [address] [address] Calcium [Mass/Vol] 9.2 mg/dL Normal 8.4-10.2 [facility] ([place]) Comment on above: Performed By: #### A DIFF, ANEU, A1C, VIDH, CMP, GFR, CBC #### [address] [address] Chloride [Moles/Vol] 104 mmol/L Normal 98-107 [facility] ([place]) Comment on above: Performed By: #### A DIFF, ANEU, A1C, VIDH, CMP, GFR, CBC #### [address] [address] CO2 [Moles/Vol] 26 mmol/L Normal 22-29 [facility] ([place]) Comment on above: Performed By: #### A DIFF, ANEU, A1C, VIDH, CMP, GFR, CBC #### [address] [address] Creatinine [Mass/Vol] 0.88 mg/dL Normal 0.55-1.02 [facility] ([place]) Comment on above: Performed By: #### A DIFF, ANEU, A1C, VIDH, CMP, GFR, CBC #### [address] [address] Electrolyte Balance 10.0 mEq/L Normal 4.0-15.0 [facility] ([place]) Comment on above: Performed By: #### A DIFF, ANEU, A1C, VIDH, CMP, GFR, CBC #### [address] [address] Globulin 3.9 G/dL Normal [facility] ([place]) Comment on above: Performed By: #### A DIFF, ANEU, A1C, VIDH, CMP, GFR, CBC #### [address] [address] Glucose [Mass/Vol] 82 mg/dL Normal 70-105 [facility] ([place]) Comment on above: Performed By: #### A DIFF, ANEU, A1C, VIDH, CMP, GFR, CBC #### [address] [address] Potassium [Moles/Vol] 4.7 mmol/L Normal 3.5-5.1 [facility] ([place]) Comment on above: Performed By: #### A DIFF, ANEU, A1C, VIDH, CMP, GFR, CBC #### [address] [address] Sodium [Moles/Vol] 140 mmol/L Normal 136-145 [facility] ([place]) Comment on above: Performed By: #### A DIFF, ANEU, A1C, VIDH, CMP, GFR, CBC #### [address] [address] Total Protein 7.8 G/dL Normal 6.4-8.2 [facility]) Comment on above: Performed By: #### A DIFF, ANEU, A1C, VIDH, CMP, GFR, CBC #### [address] [address] Urea nitrogen [Mass/Vol] 13 mg/dL Normal 7-18 [facility] ([place]) Comment on above: Performed By: #### A DIFF, ANEU, A1C, VIDH, CMP, GFR, CBC #### [address] [address] LABORATORYOrdered By: SYSTEM SYSTEM on 07-05-2024 25-hydroxyvitamin [...] calculated value from Hemoglobin A1C and is hvac sales representative of the average blood glucose [...] 07-05-2024 Vit. D 25-Hydroxy 48.5 ng/mL Normal [facility] ([place]) Comment on above: Result Comment: Inte rpretive Values Based on Total 25(OH) Vitamin D: Deficient <20 ng/mL Insufficient 20 - <30 ng/mL Sufficient 30-100 ng/mL Performed By: #### A DIFF, ANEU, A1C, VIDH, CMP, GFR, CBC #### [address] [place], [place] [address] Senior Coldfusion Developer Cytology Reporton 2023 Senior Coldfusion Developer Cytology Report . Pathology Reports Accession: Collected Date/Time: Received Date/Time: Pathologist: [id number] 05/15/2024 10:17 EDT 05/15/2024 18:00 EDT Senior Coldfusion Developer Cytology Report SPECIMEN: Specimen Description: Liquid Prep [...] and evaluated with the assistance of the [employer] ThinPrep Test Imaging System. Pathology Reports Accession: Collected Date/Time: Received Date/Time: Pathologist: [id number] 05/15/2024 10:17 EDT 05/15/2024 18:00 EDT Electronically Signed by Pathology report verified by [facility] Screened by: [place] Electronically signed by Jeni BARRON (ASCP) Sign-Out Date: 05/17/2024 16:35 Performing Lab: [facility], [address] [place] [address] Pathology Dept Disclaimer The Pap test is a screening test for cervical cancer. As evidenced by published data, it is subject to both inherent false negative and false positive results. Your patient's results should be interpreted in context with pertinent clinical history including gynecological examination. Normal [facility] ([place]) HPVon 05-17-2024 HPV Interp Normal See Interp HPVN [facility]) Comment on above: Order Comment: Order placed by AP_HPV_ORDER rule from [id number] Result Comment: High Risk HPV Typing: NEGATIVE [...] HPVN Performed By: #### H PV #### [place] [address] HPV Source Cervix Normal [facility] ([place]) Comment on above: Order Comment: Order placed by AP_HPV_ORDER rule from [id number] Performed By: #### H PV #### [place] [address] LABORATORYOrdered By: Marcelo Samayoa on 05-15-2024 HPV [...] SS .GFRon 12-08-2023 GFR 96 ml/min/1.73sqm Normal [facility] ([place]) Comment on above: Result Comment: GFR [...] A1C, VIDH, CMP, GFR, CBC #### [address] [address] GFR Non- 79 ml/min/1.73sqm Normal [facility] ([place]) Comment on above: Result Comment: GFR [...] A1C, VIDH, CMP, GFR, CBC #### [address] [address] A1Con 12-08-2023 HbA1c (Bld) [Mass fraction] 5.4 % Normal 4.3-6.4 [facility] ([place]) Comment on above: Performed By: #### A DIFF, ANEU, A1C, VIDH, CMP, GFR, CBC #### [address] [address] CMPon 12-08-2023 Albumin Level 3.8 G/dL Normal 3.5-5.0 [facility] ([place]) Comment on above: Performed By: #### A DIFF, ANEU, A1C, VIDH, CMP, GFR, CBC #### [address] [address] Albumin/Globulin [Mass ratio] 1.1 {ratio} Normal 1.1-2.5 [facility]) Comment on above: Performed By: #### A DIFF, ANEU, A1C, VIDH, CMP, GFR, CBC #### [address] [address] ALP [Catalytic activity/Vol] 100 U/L Normal 40-135 [facility] ([place]) Comment on above: Performed By: #### A DIFF, ANEU, A1C, VIDH, CMP, GFR, CBC #### [address] [address] ALT [Catalytic activity/Vol] 25 U/L Normal 14-59 [facility] ([place]) Comment on above: Performed By: #### A DIFF, ANEU, A1C, VIDH, CMP, GFR, CBC #### [address] [address] AST [Catalytic activity/Vol] 13 U/L Normal 10-40 [facility] ([place]) Comment on above: Performed By: #### A DIFF, ANEU, A1C, VIDH, CMP, GFR, CBC #### [address] [address] Bili Total 0.4 mg/dL Normal 0.2-1.0 [facility] ([place]) Comment on above: Result Comment: Use of this assay is not recommended for patients undergoing treatment with eltrombopag due to the potential for falsely elevated results. Performed By: #### A DIFF, ANEU, A1C, VIDH, CMP, GFR, CBC #### [address] [address] BUN/Creatinine Ratio 16 ratio Normal 7-27 [facility] ([place]) Comment on above: Performed By: #### A DIFF, ANEU, A1C, VIDH, CMP, GFR, CBC #### [address] [address] Calcium [Mass/Vol] 9.7 mg/dL Normal 8.4-10.2 [facility] ([place]) Comment on above: Performed By: #### A DIFF, ANEU, A1C, VIDH, CMP, GFR, CBC #### [address] [address] Chloride [Moles/Vol] 107 mmol/L Normal 98-107 [facility] ([place]) Comment on above: Performed By: #### A DIFF, ANEU, A1C, VIDH, CMP, GFR, CBC #### [address] [address] CO2 [Moles/Vol] 26 mmol/L Normal 22-29 [facility] ([place]) Comment on above: Performed By: #### A DIFF, ANEU, A1C, VIDH, CMP, GFR, CBC #### [address] [address] Creatinine [Mass/Vol] 0.76 mg/dL Normal 0.55-1.02 [facility] ([place]) Comment on above: Performed By: #### A DIFF, ANEU, A1C, VIDH, CMP, GFR, CBC #### [address] [address] Electrolyte Balance 13.0 mEq/L Normal 4.0-15.0 [facility] ([place]) Comment on above: Performed By: #### A DIFF, ANEU, A1C, VIDH, CMP, GFR, CBC #### [address] [address] Globulin 3.6 G/dL Normal [facility] ([place]) Comment on above: Performed By: #### A DIFF, ANEU, A1C, VIDH, CMP, GFR, CBC #### [address] [address] Glucose [Mass/Vol] 96 mg/dL Normal 70-105 [facility] ([place]) Comment on above: Performed By: #### A DIFF, ANEU, A1C, VIDH, CMP, GFR, CBC #### [address] [address] Potassium [Moles/Vol] 5.2 mmol/L High 3.5-5.1 [facility] ([place]) Comment on above: Performed By: #### A DIFF, ANEU, A1C, VIDH, CMP, GFR, CBC #### [address] [address] Sodium [Moles/Vol] 146 mmol/L High 136-145 [facility] ([place]) Comment on above: Performed By: #### A DIFF, ANEU, A1C, VIDH, CMP, GFR, CBC #### [address] [address] Total Protein 7.4 G/dL Normal 6.4-8.2 [facility] ([place]) Comment on above: Performed By: #### A DIFF, ANEU, A1C, VIDH, CMP, GFR, CBC #### [address] [address] Urea nitrogen [Mass/Vol] 12 mg/dL Normal 7-18 [facility] ([place]) Comment on above: Performed By: #### A DIFF, ANEU, A1C, VIDH, CMP, GFR, CBC #### [address] [address] LIPIDon 12-08-2023 Cholesterol [Mass/Vol] 179 mg/dL Normal 0-200 [facility] ([place]) Comment on above: Result Comment: Chol esterol Reference Interval: Less than 200 Desirable 200-239 Borderline high risk 240 and above High risk Performed By: #### A DIFF, ANEU, A1C, VIDH, CMP, GFR, CBC #### [address] [address] Cholesterol in HDL [Mass/Vol] 65 mg/dL High 40-60 [facility] ([place]) Comment on above: Performed By: #### A DIFF, ANEU, A1C, VIDH, CMP, GFR, CBC #### [address] [address] Cholesterol in LDL [Mass/Vol] 98 mg/dL Normal 0-130 [facility] ([place]) Comment on above: Performed By: #### A DIFF, ANEU, A1C, VIDH, CMP, GFR, CBC #### [address] [address] Triglyceride [Mass/Vol] 78 mg/dL Normal 0-150 [facility] ([place]) Comment on above: Result Comment: Trig lyceride Reference Interval: Less than 150 Normal 150-199 Borderline high risk 200-499 High risk 500 or higher Very high risk Performed By: #### A DIFF, ANEU, A1C, VIDH, CMP, GFR, CBC #### [address] [address] VIDHon 12-08-2023 Vit. D 25-Hydroxy 39.7 ng/mL Normal [facility] ([place]) Comment on above: Result Comment: Inte rpretive Values Based on Total 25(OH) Vitamin D: Deficient <20 ng/mL Insufficient 20 - <30 ng/mL Sufficient 30-100 ng/mL Performed By: #### V IDH, CMP, GFR, LIPID, A1C #### [address] [address] LABORATORYOrdered By: SYSTEM SYSTEM on 06-15-2023 Albumin [...] stimulating hormone (TSH) 0.72 mcIU/mL Normal 0.27-4.20 [facility] Comment on above: Performed By: #### T ####[address] [address] Vital Signs Date Time Vital Sign Value Performing Clinician Doroteo oscar 02-01-2022 14:28-0400 Body height 162.[address] Federico Vincent Work Phone: [facility] Work Phone: 02-01-2022 14:28-0400 Body mass index (BMI) [Ratio] 37 kg/m2 Dr. Federico Vincent Work Phone: [facility] Work Phone: 02-01-2022 14:28-0400 Body weight 97.[address] Federico Vincent Work Phone: [facility] Work Phone: 02-01-2022 14:28-0400 Diastolic blood pressure 87 mm[Hg] Dr. Federico Vincent Work Phone: [facility] Work Phone: 02-01-2022 14:28-0400 Respiratory rate 18 /min Dr. Federico Vincent Work Phone: [facility] Work Phone: 02-01-2022 14:28-0400 Systolic blood pressure 126 mm[Hg] Dr. Federico Vincent Work Phone: [facility] Work Phone: Encounters Encounter Date Encounter Type Care Provider Facility Start: 08-14-2025 ambulatory Goldy Orellana MODULAR SET CREW MEMBER Facility:[facility] Start: 07-11-2025 End: 07-11-2025 ambulatory GOLDY ORELLANA MANAGER ANALYTICAL - FUNERAL PLANNER Facility:[facility] Start: 07-11-2025 End: 07-11-2025 Patient encounter procedure GOLDY ELLIOTTKINS MANAGER ANALYTICAL - FUNERAL PLANNER [facility] Start: 05-19-2025 End: 05-23-2025 ambulatory GOLDY MEDEROSPKINS MANAGER ANALYTICAL - FUNERAL PLANNER Facility:[facility] Start: 05-19-2025 End: 05-23-2025 Outreach Lab GOLDY ELLIOTTKINS MANAGER ANALYTICAL - FUNERAL PLANNER [facility] Start: 01-03-2025 End: 01-03-2025 ambulatory GOLDY ELLIOTTKINS MANAGER ANALYTICAL - FUNERAL PLANNER Facility:[facility] Start: 01-03-2025 End: 01-03-2025 Patient encounter procedure GOLDY Maria ESTEBAN MANAGER ANALYTICAL - FUNERAL PLANNER [facility] Start: 12-30-2024 End: 12-30-2024 ambulatory GOLDY MEDEROSPKINS MANAGER ANALYTICAL - FUNERAL PLANNER Facility:[facility] Start: 12-30-2024 End: 12-30-2024 Patient encounter procedure GOLDY ELLIOTTKINS MANAGER ANALYTICAL - FUNERAL PLANNER [facility] Start: 09-12-2024 End: 09-12-2024 ambulatory GOLDY MEDEROSPKINS MANAGER ANALYTICAL - FUNERAL PLANNER Facility:[facility] Start: 09-12-2024 End: 09-12-2024 Patient encounter procedure DAYRON LAW [facility] Start: 07-05-2024 End: 07-05-2024 ambulatory GOLDY Maria ESTEBAN MANAGER ANALYTICAL - FUNERAL PLANNER Facility:[facility] Start: 07-05-2024 End: 07-05-2024 Patient encounter procedure GOLDY Maria ESTEBAN MANAGER ANALYTICAL - FUNERAL PLANNER [facility] Start: 05-15-2024 End: 05-19-2024 ambulatory JELANI MELVIN MANAGER ANALYTICAL-CNM Facility:[facility] Start: 05-15-2024 End: 05-19-2024 Encounter for gynecological examination (general) (routine) without abnormal findings JELANI MELVIN MANAGER ANALYTICAL-CNM Facility:[facility] Start: 05-15-2024 End: 05-19-2024 Outreach Lab JELANI MELVIN MANAGER ANALYTICAL-CNM [facility] Start: 12-22-2023 End: 12-22-2023 ambulatory [facility] Work Phone: Start: 12-22-2023 End: 12-22-2023 Patient encounter procedure [facility] Work Phone: Start: 12-08-2023 End: 12-08-2023 ambulatory GOLDY Maria ESTEBAN MANAGER ANALYTICAL - FUNERAL PLANNER Facility:[facility] Start: 06-15-2023 End: 06-19-2023 Outreach Lab GOLDY Maria ESTEBAN MANAGER ANALYTICAL - FUNERAL PLANNER [facility] Start: 09-26-2022 End: 09-26-2022 Patient encounter procedure MICHAEL LEIJA MD [facility] Start: 05-19-2022 End: 05-23-2022 Outreach Lab GOLDY Candace ESTEBAN MANAGER ANALYTICAL - FUNERAL PLANNER [facility] Start: 03-18-2022 End: 03-18-[address] 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 Stefan Vincent Work Phone: [facility] Start: 02-07-2022 End: 02-07-[address] Federico Vincent Work Phone: [facility] Start: 02-01-2022 End: 02-01-[address] Federico Vincent Work Phone: [facility] Start: 01-25-2022 End: 01-25-[address] Federico Vincent Work Phone: [facility] Start: 01-21-2022 End: 01-21-[address] Federico Vincent Work Phone: [facility] Start: 01-27-2020 End: 05-15-2020 Patient encounter procedure MICHAEL LEIJA [facility] Start: 06-02-2017 Ambulatory FEDERICO Doyle y:YULISSA MAIN Procedures Date Procedure Procedure Detail Performing Clinician Start: 12-22-2023 Screening mammography Start: 02-07-2022 Ultrasonography guid ed biopsy of breast Dr. Federico Vincent Work Phone: Start: 01-25-[address] Federico Vincent Work Phone: Start: 01-21-2022 Screening mammography Candace Vincent Work Phone: Start: 01-29-2021 Colonoscopy GOLDY AVILA MANAGER ANALYTICAL - FUNERAL PLANNER Arthroplasty of knee JELANI STEELECARLA MANAGER ANALYTICAL-CNM Comment on above: Left knee Arthroscopy of knee GOLDY ORELLANA MANAGER ANALYTICAL - FUNERAL PLANNER Comment on above: TWO ON THE LEFT, ONE ON THE RIGHT Cholecystectomy GOLDY KUO MANAGER ANALYTICAL - FUNERAL PLANNER Decompression of med shady nerve GOLDY ORELLANA MANAGER ANALYTICAL - FUNERAL PLANNER Comment on above: RIGHT ONLY Reduction mammoplasty THALIA ORELLANA MANAGER ANALYTICAL - FUNERAL PLANNER Repair of shoulder GOLDY HUANG MANAGER ANALYTICAL - FUNERAL PLANNER Repair of shoulder JELANI B EDEN MANAGER ANALYTICAL-CNM Comment on above: Bilateral Immunizations Immunization Date Immunization Notes Care Provider [facility] 02-05-2021 SARS-CoV-2 (COVID-19 ) Ad26 vaccine, recombinant GOLDY ORELLANA MANAGER ANALYTICAL - FUNERAL PLANNER [facility] Comment on above: Result Comment: 2020: TPV50 09-21-2020 influenza, injectabl e, quadrivalent, preservative free; Translations: [Fluarix PF Quadrivalent ] GOLDY ORELLANA MANAGER ANALYTICAL - FUNERAL PLANNER [facility] 12-05-2019 influenza, injectabl e, quadrivalent, preservative free; Translations: [Fluarix PF Quadrivalent ] GOLDY ORELLANA MANAGER ANALYTICAL - FUNERAL PLANNER [facility] 01-24-2019 influenza virus vaccine, unspecified formulation GOLDY ORELLANA MANAGER ANALYTICAL - FUNERAL PLANNER [facility] 09-02-2016 influenza virus vaccine, unspecified formulation GOLDY ORELLANA MANAGER ANALYTICAL - FUNERAL PLANNER [facility] Payers Date Payer Category Payer Self-pay [id number] 2025 Private Health Insurance [id number] 2024 Unknown [id number] 2016 Unknown [id number] 1968 Unknown [id number] 2.16.84 [id number] 1968 Unknown [id number] 2.16.8 [id number] 1968 Unknown [id number] 2.16.8 [id number] 1968 Unknown [id number] 2.16.8 [id number] 1968 Unknown [id number] 2.16. [id number] 1968 Unknown [id number] 2.16. [id number] 1968 Unknown [id number] 2.16.8 [id number] 1968 Unknown [id number] 2.16.8 [id number] 1968 Unknown [id number] 2.16.8 [id number] Unknown [id number] 2.16.8 [id number] Social History Date Type Detail Facility Start: 02-01-2022 End: 02-01-2022 Tobacco smoking status NCIS Unknown if ever smoked [facility] Start: 1970 Sex Assigned At Female [facility] Start: 07-02-2019 End: 07-11-2025 Tobacco smoking status Never smoked tobacco (finding) [facility] Sexual Orientation [facility] osana [facility] Start: 05-15-2019 Sex Female (finding) [facility] Clinical Notes 05-17-2024 to 05-23-2025 Note Date [...] Locations *1: This test was performed at: [address], [facility] , [facility] 12-30-2024 Note Exam Date Time Procedure Performing Provider Status 12/30/24 8:12 AM XR Chest 2 Views KRISTINE SEGAL MD; [facility] (Verified) [id number] ORIGINAL HISTORY: Cough COMPARISON: No FINDINGS: There [...] 12/30/2024 8:19:09 AM Ordering Provider: GOLDY ORELLANA [facility]06-28-2024 Note LMP: 2 years ago Abnormal Bleeding: Yes [facility] 06-28-2024 Note LMP: 2 years ago Abnormal Bleeding: Yes [facility] 06-28-2024 Note LMP: 2 years ago Abnormal Bleeding: Yes [facility] 06-28-2024 Note LMP: 2 years ago Abnormal Bleeding: Yes [facility] 06-28-2024 Note LMP: 2 years ago Abnormal Bleeding: Yes [facility] 06-28-2024 Note LMP: 2 years ago Abnormal Bleeding: Yes [facility] 06-28-2024 Note LMP: 2 years ago Abnormal Bleeding: Yes [facility] 06-28-2024 Note LMP: 2 years ago Abnormal Bleeding: Yes [facility] Evaluation + Plan note Future Appointments Appointment Date:05/27/2022 08:20:00 AM Scheduled Provider:GOLDY ORELLANA APRN, CNP Location:[facility] Appointment Type:PC OV Follow Up Future Scheduled Tests Laboratory* Complete Blood Count 07/12/21 [facility] Evaluation + Plan note Future Appointments Appointment Date:11/24/2022 08:30:00 AM Scheduled Provider: Location:[facility] Appointment Type:PC Nurse Lab Appointment Date:12/02/2022 08:20:00 AM Scheduled Provider:GOLDY ORELLANA APRN, CNP Location:[facility] Appointment Type:PC OV Follow Up Future Scheduled Tests Laboratory* A1C Hemoglobin 11/27/22 * Vitamin D Level 11/27/22 [facility] Evaluation + Plan note Future Appointments Appointment Date:12/15/2023 07:40:00 AM Scheduled Provider:GOLDY ORELLANA APRN, CNP Location:[facility] Appointment Type:PC OV Follow Up Future Scheduled Tests Laboratory* A1C Hemoglobin 12/16/23 * Lipid Profile 12/16/23 * Vitamin D Level 12/16/23 * Complete Metabolic Panel 12/16/23 [facility] Evaluation + Plan note Future Appointments Appointment Date:06/17/2024 09:15:00 AM Scheduled Provider:DEACON AYOUB MD Location: [facility] Appointment Type: OV Appointment Date:07/12/2024 07:40:00 AM Scheduled Provider:GOLDY ORELLANA APRN - [place] Location:[facility] Appointment Type: OV Follow Up Future Scheduled Tests Laboratory* A1C Hemoglobin 06/14/24 * Complete Blood Count 06/14/24 * Vitamin D Level 06/14/24 * Complete Metabolic Panel 06/14/24 [facility] Evaluation + Plan note Future Appointments Appointment Date:07/12/2024 07:40:00 AM Scheduled Provider:GOLDY ORELLANA APRN, CNP Location:[facility] Appointment Type: OV Follow Up [facility] Evaluation + Plan note Future Appointments Appointment Date:01/10/2025 07:40:00 AM Scheduled Provider:GOLDY ORELLANA APRN - [place] Location:[facility] Appointment Type:PC OV Future Scheduled Tests Laboratory* A1C Hemoglobin 01/12/25 * Lipid Profile 01/12/25 * Vitamin D Level 01/12/25 * Complete Metabolic Panel 01/12/25 [facility] Evaluation + Plan note Future Appointments Appointment Date:01/10/2025 07:40:00 AM Scheduled Provider:GOLDY ORELLANA APRN - [place] Location:[facility] Appointment Type:PC OV [facility] Evaluation + Plan note Future Appointments Appointment Date:07/11/2025 08:00:00 AM Scheduled Provider:GOLDY ORELLANA APRN, CNP Location:[facility] [facility] Appointment Type:PC OV Future Scheduled Tests Laboratory* A1C Hemoglobin 07/10/25 * Lipid Profile 07/10/25 * Vitamin D Level 07/10/25 * Complete Metabolic Panel 07/10/25 [facility] Evaluation + Plan note Future Appointments Appointment Date:01/13/2026 08:00:00 AM Scheduled Provider: Location:[facility] Appointment Type:PC Nurse Lab Appointment Date:01/16/2026 07:00:00 AM Scheduled Provider:GOLDY ORELLANA APRN, CNP Location:[facility] Appointment Type:PC OV Follow Up Future Scheduled Tests Laboratory* A1C Hemoglobin 01/11/26 * Lipid Profile 01/11/26 * Vitamin D Level 01/11/26 * Complete Metabolic Panel 01/11/26 Radiology* MA Mammo Screening Bilateral w/ Jorge Luis 07/11/25 [facility] Evaluation note* Diagnosis Onset Date Resolution Status Abnormal mammogram of left breast acute Abnormal mammogram of left breast acute [facility] Work Phone: Evaluation noteNo assessment information available [facility] Work Phone: Hospital course Narrative No data available for this section [facility] Hospital Discharge instructions No data available for this section [facility] Progress note No data available for this section [facility] Summary Purpose Family History No Family History [...] and content) DATE CREATED AUTHOR 05/16/2018 [facility] DATE CREATED AUTHOR AUTHOR'S ORGANIZ ATION 06/10/2020 [facility] DATE CREATED AUTHOR AUTHOR'S ORGANIZ ATION 07/06/2024 [facility] ([place]) DATE CREATED AUTHOR AUTHOR'S ORGANIZ ATION 07/13/2025 [facility] DATE CREATED AUTHOR AUTHOR'S ORGANIZ ATION 08/09/2025 [facility] Goals (unrecognized section and content) Goals may [...] Member Role: Primary Care Physician Address: Address: [address] [place] [address] Care Team Related Persons Name: GOLDY METZ Care Team Personnel Name: GOLDY ORELLANA MANAGER ANALYTICAL - FUNERAL PLANNER Position: P4 Advanced Practice Nurse Member Role: Primary Care Physician Address: Address: [address] [place] [address] Care Team Related Persons Name: GOLDY METZ Patient Care team informatio n (unrecognized section and content) Team Status: Active Member Role Status Dates Dr. Federico Vincent DO Family Provider Active Goldy Orellana MODULAR SET CREW MEMBER, MODULAR SET CREW MEMBER-C Primary Care Provider Active Team Status: Inactive Member Role Status Dates oGldy Orellana MODULAR SET CREW MEMBER, MODULAR SET CREW MEMBER-C Primary Care Provider, Attending Provider, Referring Provider [...] BE BASED ON THE PRIMARY CLINICAL RECORDS. [facility] [employer] [facility]. provides no warranty or guarantee of the accuracy or completeness of information in this document.
== END | disposition home or self-care (01) ==
LOC: OPBI 07:22
PROVIDERS: PCP Nurse Practitioner Family; Referring Provider Nurse Practitioner Family; Visit Provider Nurse Practitioner Family
DX: Z12.31 Encounter for screening mammogram for malignant neoplasm of breast (principal)
CPT/HCPCS: 77063; 77067